=== PATIENT | female | born 1955 | race Caucasian/White ===

== ENCOUNTER → 2016-09-20 | Outpatient (CLI) | payer OTHER ==
[~2016-09-20] MED LIST: ALBU1AER9 INH; ASCO500T3 PO; ASPI325T39 PO; ASPI81TA28 PO; B-CO1CAP17 PO; B-COTAB18 PO; CALC-478 PO; LEVO25TA5 PO; METO25TA3 PO; OMEP20CA9 PO; QVRINH80 INH; VENL150C56 PO; VITA100C4 PO
== END | disposition home or self-care (01) ==
LOC: C.LABMFLN 09:01
PROVIDERS: ATTEND Family Medicine
DX: Z11.59 Encounter for screening for other viral diseases (principal); E03.9 Hypothyroidism, unspecified

== ENCOUNTER → 2016-10-15 | Outpatient (CLI) | payer OTHER ==
--- NOTE | 2016-10-15 12:55 | DIAGNOSTIC IMAGING REPORT ---
BILATERAL KNEE RADIOGRAPHS CLINICAL HISTORY: Bilateral knee pain. COMPARISON: Left knee radiographs January 02, 2016 and knee radiographs July 24, 2015 FINDINGS: Right knee: There is mild to moderate medial compartment joint space narrowing within the right knee with osteophytosis. There is suspected chondrocalcinosis. There is joint space narrowing with osteophytosis within the patellofemoral compartment of the right knee. No right knee joint effusion is present. There has been mild progression since exam of July 24, 2015. Left knee: Alignment of the left knee is anatomic. There is no acute fracture or joint effusion. There is moderate lateral compartment joint space narrowing of the left knee. There is joint space narrowing and osteophytosis within the patellofemoral compartment of the left knee. IMPRESSION: Right knee: 1. Moderate osteoarthritis of the right knee, most pronounced within the medial compartment. 2. No acute fracture or joint effusion of the right knee. Left knee: 1. Moderate osteoarthritis of the left knee, most pronounced within the lateral compartment. 2. No acute fracture or joint effusion of the left knee. Electronically signed by: Raghav Buchanan M.D. 10/15/2016 12:53 PM Dictated Date/Time: 10/15/2016 12:51 PM
== END | disposition home or self-care (01) ==
LOC: C.RDSM 11:00
PROVIDERS: ATTEND Physical Medicine & Rehabilitation Sports Medicine
DX: M25.561 Pain in right knee (principal); M25.562 Pain in left knee

== ENCOUNTER → 2016-11-08 | Day surgery (SDC) | payer OTHER ==
[2016-10-25 09:38] VITALS: Ht 157.5 cm; Wt 134.1 kg
[~2016-11-08] VITALS: Ht 157.5 cm; Wt 134.1 kg
[~2016-11-08] MED LIST changes: -ASCO500T3 PO; -ASPI325T39 PO; -B-CO1CAP17 PO; +LIDOCAINE HCL 2% 2 ML VIAL (20MG/ML) ONE; -METO25TA3 PO; -OMEP20CA9 PO; +PROPOFOL IV EMULSION 10 MG/ML 20 ML VIAL IV ONE; -VITA100C4 PO
--- NOTE | 2016-11-08 14:42 | Endo History and Physical ---
History & Physical Date of Service: Nov 08, 2016. Chief Complaint: dysphagia Referring Physician: Dr. yunior Goldberg History of Present Illness For EGD Past Medical History Anxiety, Reflux, Sleep Apnea, Hypertension, Depression Past Surgical History Hx Cardiac Surgery: Yes (HEART CATH-NO STENTS) Hx Internal Defibrillator: No Hx Pacemaker: No (LUKE RECORDER IMPLANTED) Hx Abdominal Surgery: Yes (UTERINE POLYP REMOVAL, D&C'S, TUBAL LIGATION) Hx of Implantable Prosthesis: No Hx Post-Op Nausea and Vomiting: No Hx Cancer Surgery: Yes (MULTIPLE BREAST BIOPSIES AND TUMOR REMOVAL (BENIGN)) Hx Thoracic Surgery: No Hx Orthopedic: Yes (RT KNEE ARTHROSCOPY) Hx Urinary Tract Surgery: No Family History Colon CA, Polyp, IBD Social History Smoking Status: Never Smoker Hx Substance Use: No Hx Alcohol Use: No Allergies Coded Allergies: Clopidogrel (Verified Allergy, Unknown, MUSCLE ACHES, 10/25/16) Iodinated Diagnostic Agents (Verified Allergy, Unknown, ANAPHALAXIS, ) Mometasone (Verified Allergy, Unknown, HIVES, 10/25/16) Naproxen (Verified Allergy, Unknown, HEART ATTACK SYMPTOMS, 10/25/16) Penicillins (Verified Allergy, Unknown, RASH, 10/25/16) Sertraline (Verified Allergy, Unknown, CHEST PAIN, 10/25/16) Current Medications Reported Home Medications Medications Dose Route/Sig Max Daily Dose Days Date Category Calcium & Magnesium + Zin 334-134-5 mg (Sfeboae-Fuoxahcxk-Imxs) 1 Tab Tab 1 Tab PO HS 10/25/16 Reported Vitamin B Complex (B-Complex Vitamins) 1 Tab Tab 1 Tab PO QAM 10/25/16 Reported Qvar (Beclomethasone Dip) 80 Mcg/Act Aer 1 Puff INH BID 10/25/16 Reported Effexor Extended Rel (Venlafaxine Hcl) 150 Mg Cap 150 Mg PO QAM 10/25/16 Reported Levothyroxine Sodium 25 Mcg Tab 1 Tab PO QAM 90 10/25/16 Reported Proair Hfa (Albuterol) Aers 2 Puffs INH Q4H PRN 09/06/14 Reported Vital Signs Weight (Kilograms): 134.09 Height (Feet): 5 Height (Inches): 2 Date Time Temp Pulse Resp B/P Pulse Ox O2 Delivery O2 Flow Rate FiO2 11/08/16 13:47 36.8 73 24 163/90 94 Room Air Physical Exam General Appearance: + obese Respiratory/Chest: Respiratory effort: no dyspnea Cardiovascular: Heart Auscultation: RRR Abdomen: Inspection & Palpation: soft Assessment and Plan Dysphagia for EGD
--- NOTE | 2016-11-08 14:43 | Discharge Instructions ---
Endoscopy Patient Instructions Date / Procedure(s) Performed Nov 08, 2016. EGD Allergy Information Coded Allergies: Clopidogrel (Verified Allergy, Unknown, MUSCLE ACHES, 10/25/16) Iodinated Diagnostic Agents (Verified Allergy, Unknown, ANAPHALAXIS, ) Mometasone (Verified Allergy, Unknown, HIVES, 10/25/16) Naproxen (Verified Allergy, Unknown, HEART ATTACK SYMPTOMS, 10/25/16) Penicillins (Verified Allergy, Unknown, RASH, 10/25/16) Sertraline (Verified Allergy, Unknown, CHEST PAIN, 10/25/16) Discharge Date / Findings Nov 08, 2016. Esophagitis with stricture-dilated Medication Instructions Restart Stopped Medication(s): resume meds Reported Home Medications Medications Dose Route/Sig Max Daily Dose Days Date Category Calcium & Magnesium + Zin 334-134-5 mg (Mkqised-Unxrwwwyb-Vtsy) 1 Tab Tab 1 Tab PO HS 10/25/16 Reported Vitamin B Complex (B-Complex Vitamins) 1 Tab Tab 1 Tab PO QAM 10/25/16 Reported Qvar (Beclomethasone Dip) 80 Mcg/Act Aer 1 Puff INH BID 10/25/16 Reported Effexor Extended Rel (Venlafaxine Hcl) 150 Mg Cap 150 Mg PO QAM 10/25/16 Reported Levothyroxine Sodium 25 Mcg Tab 1 Tab PO QAM 90 10/25/16 Reported Proair Hfa (Albuterol) Aers 2 Puffs INH Q4H PRN 09/06/14 Reported Provider Instructions Activity Restrictions - No exercising or heavy lifting for 24 hours. - Do not drink alcohol the day of the procedure. - Do not drive a car or operate machinery until the day after the procedure. - Do not make any important decisions or sign important papers in 24 hours after the procedure. Following Day: - Return to full activity which may include returning to work/school. Diet Start your diet with liquids and light foods (jello, soup, juice, toast). Then eat your usual diet if not nauseated. Treatment For Common After Affects For mild abdominal pain, bloating, or excessive gas: - Rest - Eat lightly - Lie on right side Follow-Up Information Follow-up with Dr. yunior Goldberg as scheduled Anesthesia Information What You Should Know You have had a procedure that required some medicine to reduce anxiety and discomfort. This treatment is called moderate sedation. After receiving the treatment, you may be sleepy, but you will be able to breathe on your own. The effects of the treatment may last for several hours. Follow these instructions along with Activity/Diet recommendations noted above: * Do NOT do anything where dizziness or clumsiness would be dangerous. * Rest quietly at home today, then you can be up and about tomorrow. * Have a responsible person stay with you the rest of today. * You may have had an I.V. today. If so, you may take the dressing off later today. Recommendations Call your doctor if: * Trouble breathing * Continuous vomiting for more than 24 hours * Temperature above 101 degrees * Severe abdominal pain or bloating * Pain not relieved by pain medicine ordered * There is increased drainage or redness from any incision * A large amount of rectal bleeding greater than 2-3 tablespoons. (If you had a polyp/s removed or have hemorrhoids, a small amount of blood - from the rectum is to be expected.) * You have any unanswered questions or concerns. IN THE EVENT OF A SERIOUS EMERGENCY, GO TO THE NEAREST EMERGENCY ROOM Your discharge instructions were prepared by provider Austin Delacruz. Patient Instructions Signature Page Guerline Noyola Patient (or Guardian) Signature/Date: I have read and understand the instructions given to me by my caregivers. Caregiver/RN/Doctor Signature/Date: The above-named patient and/or guardian has received patient instructions on this date. + Original Patient Signature Page (only) stays with chart. Please make copy for patient.
--- NOTE | 2016-11-08 14:47 | GI REPORT ---
Procedure Date: 11/08/2016 2:18 PM Procedure: Upper GI endoscopy Indications: Dysphagia Medicines: Propofol total dose 150 mg IV, Lidocaine 100 mg IV Complications: No immediate complications. Estimated Blood Loss: Estimated blood loss: none. Procedure: Pre-Anesthesia Assessment: - Prior to the procedure, a History and Physical was performed, and patient medications, allergies and sensitivities were reviewed. The patient's tolerance of previous anesthesia was reviewed. - The risks and benefits of the procedure and the sedation options and risks were discussed with the patient. All questions were answered and informed consent was obtained. After obtaining informed consent, the endoscope was passed under direct vision. Throughout the procedure, the patient's blood pressure, pulse, and oxygen saturations were monitored continuously. The Scope was introduced through the mouth, and advanced to the second part of duodenum. The upper GI endoscopy was accomplished without difficulty. The patient tolerated the procedure well. Findings: LA Grade A (one or more mucosal breaks less than 5 mm, not extending between tops of 2 mucosal folds) esophagitis with no bleeding was found. One mild benign-appearing, intrinsic stenosis was found. And was traversed. A guidewire was placed and the scope was withdrawn. Dilation was performed with a Savary dilator with no resistance at 54 Fr. The entire examined stomach was normal. The examined duodenum was normal. Impression: - LA Grade A reflux esophagitis. - Benign-appearing esophageal stenosis. Dilated. - Normal stomach. - Normal examined duodenum. - No specimens collected. Recommendation: - Discharge patient to home (ambulatory). - Continue present medications. - Return to primary care physician PRN. Austin Delacruz M.D. Austin Delacruz MD 11/08/2016 2:47:34 PM This report has been signed electronically. Note Initiated On: 11/08/2016 2:18 PM I attest to the content of the Intraoperative Record and orders documented therein, exceptions below
--- NOTE | 2016-11-08 15:12 | Anesthesiology Progress Note ---
Anesthesia Post Op Note Date & Time Nov 08, 2016 at 15:12 Vital Signs Pain Intensity: 0 Vital Signs Past 12 Hours Date Time Temp Pulse Resp B/P Pulse Ox O2 Delivery O2 Flow Rate FiO2 11/08/16 14:58 68 18 122/70 98 Room Air 11/08/16 14:43 73 18 126/68 98 Room Air 11/08/16 13:47 36.8 73 24 163/90 94 Room Air Notes Mental Status: alert / awake / arousable, participated in evaluation Pt Amnestic to Procedure: Yes Nausea / Vomiting: adequately controlled Pain: adequately controlled Airway Patency, RR, SpO2: stable & adequate BP & HR: stable & adequate Hydration State: stable & adequate Anesthetic Complications: no major complications apparent
[2016-11-08 15:13] VITALS: BP 122/67; PULSE 71; O2SAT 95
== END | disposition home or self-care (01) ==
LOC: C.GI 13:28
PROVIDERS: ATTEND Internal Medicine Gastroenterology
DX: K22.2 Esophageal obstruction (principal); K21.0 Gastro-esophageal reflux disease with esophagitis; F41.9 Anxiety disorder, unspecified; G47.30 Sleep apnea, unspecified; Z80.0 Family history of malignant neoplasm of digestive organs; I10 Essential (primary) hypertension; F32.9 Major depressive disorder, single episode, unspecified; Z98.51 Tubal ligation status; Z98.890 Other specified postprocedural states

== ENCOUNTER → 2017-03-06 | Day surgery (SDC) | payer OTHER ==
[~2017-03-06] VITALS: Ht 157.5 cm; Wt 140.0 kg
[~2017-03-06] MED LIST changes: +ACETAMINOPHEN 325 MG TAB PO PRN; +BACITRACIN OINT 0.9 GM PKT ONE; +FENTANYL CITRATE INJ 50 MCG/1 ML 2 ML VIAL ONE; +LIDOCAINE HCL 1% 20 ML VIAL ONE; -LIDOCAINE HCL 2% 2 ML VIAL (20MG/ML) ONE; +MIDAZOLAM HCL 1 MG/ML 2ML VIAL ONE; -PROPOFOL IV EMULSION 10 MG/ML 20 ML VIAL IV ONE
[2017-03-06 07:45] VITALS: BP 144/66; PULSE 72; TEMP 36.9; O2SAT 96; Ht 157.5 cm; Wt 140.0 kg
--- NOTE | 2017-03-06 08:22 | History & Physical Bridge Note ---
H&P Re-Evaluation Bridge Note: I have examined the patient, reviewed the History & Physical and in the interval since the performance of the History & Physical I have noted the following changes of clinical significance: No changes noted. I reviewed the indications, procedure, risks and alternatives with her and she understands and agree to proceed. Consent obtained.
--- NOTE | 2017-03-06 08:23 | Procedure Note ---
Pre-Mod Sedation Assessment General Date of Moderate Sedation: Mar 06, 2017. Vital Signs: Vital Signs Past 12 Hours Date Time Temp Pulse Resp B/P (MAP) Pulse Ox O2 Delivery O2 Flow Rate FiO2 03/06/17 07:45 36.9 72 20 144/66 (92) 96 Room Air Review Cardiovascular: regular rate, rhythm Abdomen: normal bowel sounds Lungs: lungs clear, normal breath sounds Pre-Sedation Airway Assessment Oral Cavity: Chipped Teeth, Dentures Smoking Status: Never Smoker Procedure Planning Contraindications-for Mod Sed: None Yes Notes The planned sedation has been discussed with the patient and consent obtained. I have identified the patient, determined the appropriateness of sedation and have assessed the patient immediately prior to the procedure. All medicine(s) and interventions are by my order.
[2017-03-06 09:22] VITALS: BP 156/77; PULSE 71; TEMP 36.6; O2SAT 94
--- NOTE | 2017-03-06 09:22 | Procedure Note ---
Post-Mod Sedation Assessment General Date of Moderate Sedation Mar 06, 2017. Vital Signs: Vital Signs Past 12 Hours Date Time Temp Pulse Resp B/P (MAP) Pulse Ox O2 Delivery O2 Flow Rate FiO2 03/06/17 09:05 74 16 142/76 (98) 99 Room Air 03/06/17 07:45 36.9 72 20 144/66 (92) 96 Room Air Review - Discharge Criteria Vital Signs Stable: Yes Alert/Oriented/Conversant: Yes Returned to Baseline Mental St: Yes Nausea Absent/Minimal: Yes Pain/Discomfort/Absent/Minimal: Yes Normal/Baseline Respirations: Yes Active Bleeding?: No
--- NOTE | 2017-03-06 09:22 | [facility] Operative Report ---
Operative Report Operative Date Mar 06, 2017. Pre-Operative Diagnosis Loop recorder in place Post-Operative Diagnosis same Procedure(s) Performed Loop recorder explantation Surgeon Dr. Ackerman Material Carrier Surgeon(s) none Estimated Blood Loss 2 cc Findings The loop recorder was located near the scar as expected and successfully removed. Specimens [facility] local with sedation Complication(s) None Disposition [facility] Description of Procedure After obtaining informed consent for the procedure, the patient was brought to the laboratory having had nothing by mouth after midnight. The location of the loop recorder was identified on x-ray. The patient was prepped and draped in the standard sterile manner for a loop recorder removal. The area was infiltrated with 1% lidocaine local anesthetic and a 1 cm incision was made through the old implant scar and carried down to the loop recorder. The loop recorder was dissected free of tissue and explanted. The incision was closed with a subcutaneous continuous closure of 4-0 Vicryl followed by running subcuticular skin closure of 4-0 Vicryl. Steri-Strips were applied and bacitracin ointment was placed on the incision. A dressing was applied. I attest to the content of the Intraoperative Record and any orders documented therein. Any exceptions are noted below.
[2017-03-06 09:52] VITALS: BP 149/77; PULSE 75; O2SAT 93
[2017-03-06 10:20] VITALS: BP 152/70; PULSE 71; O2SAT 95
[2017-03-06 10:49] VITALS: BP 136/65; PULSE 78; TEMP 36.4; O2SAT 96
--- NOTE | 2017-03-06 10:56 | Discharge Instructions ---
Discharge Instructions Date of Service Mar 06, 2017. Admission Reason for Admission: Removal Of Loop Discharge Discharge Diagnosis / Problem: Loop recorder in place Discharge Goals Goal(s): Therapeutic intervention Activity Recommendations Activity Limitations: resume your previous activity Weightbearing Status: Right partial . Instructions / Follow-Up Instructions / Follow-Up ACTIVITY RECOMMENDATIONS: * Do not raise affected arm over head for 2 weeks. SPECIAL CARE INSTRUCTIONS: * If bleeding occurs, apply direct pressure to area for 5 minutes. * Call your doctor if you have severe pain, fever, drainage or bleeding at site. * Keep dressing on and dry. * Keep any scheduled doctor's appointment. * Implant Card - hand held device with website information given. SKIN IRRITATION: * You may experience some redness and/or swelling in the area where radiation was administered. If any skin irritation occurs, please contact your family physician. FOLLOW UP VISIT: Dr. Ackerman 03/07/2017, 10:30 AM Current Hospital Diet Patient's current hospital diet: AHA Diet (Heart Healthy) Discharge Diet Recommended Diet: AHA Diet (Heart Healthy) Pending Studies Studies pending at discharge: no Medical Emergencies . Who to Call and When: Medical Emergencies: If at any time you feel your situation is an emergency, please call 911 immediately. . Non-Emergent Contact Non-Emergency issues call your: Primary Care Provider . . "Provider Documentation" section prepared by Brennon Ackerman. . VTE Core Measure Inpt VTE Proph given/why not?: Treatment not indicated
[2017-03-06 11:25] VITALS: BP 149/68; PULSE 82; TEMP 36.6; O2SAT 96
== END | disposition home or self-care (01) ==
LOC: C.ACU 07:03
PROVIDERS: ATTEND Internal Medicine Cardiovascular Disease
DX: Z95.818 Presence of other cardiac implants and grafts (principal); R55 Syncope and collapse; R00.2 Palpitations; F32.9 Major depressive disorder, single episode, unspecified; J45.909 Unspecified asthma, uncomplicated; K21.9 Gastro-esophageal reflux disease without esophagitis; N60.19 Diffuse cystic mastopathy of unspecified breast; E78.5 Hyperlipidemia, unspecified; I10 Essential (primary) hypertension; E03.9 Hypothyroidism, unspecified; E66.9 Obesity, unspecified; G47.33 Obstructive sleep apnea (adult) (pediatric); Z86.010 Personal history of colon polyps; Z82.49 Family history of ischemic heart disease and other diseases of the circulatory system; Z82.3 Family history of stroke

== ENCOUNTER → 2017-03-28 | Day surgery (SDC) | payer OTHER ==
[2017-03-14 10:36] VITALS: Ht 157.5 cm; Wt 140.0 kg
[~2017-03-28] VITALS: Ht 157.5 cm; Wt 140.0 kg
[~2017-03-28] MED LIST changes: -ACETAMINOPHEN 325 MG TAB PO PRN; -BACITRACIN OINT 0.9 GM PKT ONE; -LIDOCAINE HCL 1% 20 ML VIAL ONE; +LIDOCAINE HCL 2% 2 ML VIAL (20MG/ML) ONE; -MIDAZOLAM HCL 1 MG/ML 2ML VIAL ONE; +PROPOFOL IV EMULSION 10 MG/ML 20 ML VIAL IV ONE; -QVRINH80 INH
--- NOTE | 2017-03-28 13:59 | Endo History and Physical ---
History & Physical Date of Service: Mar 28, 2017. Chief Complaint: dysphagia Referring Physician: Dr. So Goldberg History of Present Illness For EGD Past Medical History Anxiety, Reflux, Sleep Apnea, Hypertension, Depression Past Surgical History Hx Cardiac Surgery: Yes (LOOP RECORDER PLACED AND REMOVED, HEART CATH NO STENTS 4-5 YEARS AGO) Hx Internal Defibrillator: No Hx Pacemaker: No Hx Abdominal Surgery: Yes (UTERINE POLYP REMOVAL, D&C'S, TUBAL LIGATION) Hx of Implantable Prosthesis: No Hx Post-Op Nausea and Vomiting: No Hx Cancer Surgery: No Hx Thoracic Surgery: No Hx Orthopedic: Yes (RT KNEE SCOPE) Hx Urinary Tract Surgery: No Family History Colon CA Social History Smoking Status: Never Smoker Hx Substance Use: No Hx Alcohol Use: No Allergies Coded Allergies: Doxycycline (Verified Allergy, Intermediate, RASH, 03/14/17) Iodinated Diagnostic Agents (Verified Allergy, Unknown, ANAPHALAXIS, ) Mometasone (Verified Allergy, Unknown, HIVES, 03/14/17) Naproxen (Verified Allergy, Unknown, HEART ATTACK SYMPTOMS, 03/14/17) Penicillins (Verified Allergy, Unknown, RASH, 03/14/17) Sertraline (Verified Allergy, Unknown, CHEST PAIN, 03/14/17) Clopidogrel (Verified Adverse Reaction, Unknown, MUSCLE ACHES, 03/14/17) Current Medications Reported Home Medications Medications Dose Route/Sig Max Daily Dose Days Date Category Aspirin Ec (Aspirin) 81 Mg Tab 81 Mg PO Q2D 03/06/17 Reported Calcium & Magnesium + Zin 334-134-5 mg (Irtpven-Luehytppp-Mlxz) 1 Tab Tab 1 Tab PO HS 10/25/16 Reported Vitamin B Complex (B-Complex Vitamins) 1 Tab Tab 1 Tab PO QAM 10/25/16 Reported Effexor Extended Rel (Venlafaxine Hcl) 150 Mg Cap 150 Mg PO QAM 10/25/16 Reported Levothyroxine Sodium 25 Mcg Tab 1 Tab PO BID 10/25/16 Reported Proair Hfa (Albuterol) Aers 2 Puffs INH Q4H PRN 09/06/14 Reported Vital Signs Weight (Kilograms): 140 Height (Feet): 5 Height (Inches): 2 Date Time Temp Pulse Resp B/P (MAP) Pulse Ox O2 Delivery O2 Flow Rate FiO2 03/28/17 13:34 37.2 76 20 165/76 (105) 95 Room Air Physical Exam General Appearance: + obese Respiratory/Chest: Respiratory effort: no dyspnea Cardiovascular: Heart Auscultation: RRR Abdomen: Inspection & Palpation: soft Assessment and Plan Dysphagia for EGD
--- NOTE | 2017-03-28 14:14 | Discharge Instructions ---
Endoscopy Patient Instructions Date / Procedure(s) Performed Mar 28, 2017. EGD Allergy Information Coded Allergies: Doxycycline (Verified Allergy, Intermediate, RASH, 03/14/17) Iodinated Diagnostic Agents (Verified Allergy, Unknown, ANAPHALAXIS, ) Mometasone (Verified Allergy, Unknown, HIVES, 03/14/17) Naproxen (Verified Allergy, Unknown, HEART ATTACK SYMPTOMS, 03/14/17) Penicillins (Verified Allergy, Unknown, RASH, 03/14/17) Sertraline (Verified Allergy, Unknown, CHEST PAIN, 03/14/17) Clopidogrel (Verified Adverse Reaction, Unknown, MUSCLE ACHES, 03/14/17) Discharge Date / Findings Mar 28, 2017. esophagitis Medication Instructions Stopped Medication(s): last dose ASA 03/23 Restart Stopped Medication(s): resume meds. Begin Prilosec 20 mg a day Reported Home Medications Medications Dose Route/Sig Max Daily Dose Days Date Category Aspirin Ec (Aspirin) 81 Mg Tab 81 Mg PO Q2D 03/06/17 Reported Calcium & Magnesium + Zin 334-134-5 mg (Lasbfhy-Zhnyhbcwi-Xtbe) 1 Tab Tab 1 Tab PO HS 10/25/16 Reported Vitamin B Complex (B-Complex Vitamins) 1 Tab Tab 1 Tab PO QAM 10/25/16 Reported Effexor Extended Rel (Venlafaxine Hcl) 150 Mg Cap 150 Mg PO QAM 10/25/16 Reported Levothyroxine Sodium 25 Mcg Tab 1 Tab PO BID 10/25/16 Reported Proair Hfa (Albuterol) Aers 2 Puffs INH Q4H PRN 09/06/14 Reported Provider Instructions Activity Restrictions - No exercising or heavy lifting for 24 hours. - Do not drink alcohol the day of the procedure. - Do not drive a car or operate machinery until the day after the procedure. - Do not make any important decisions or sign important papers in 24 hours after the procedure. Following Day: - Return to full activity which may include returning to work/school. Diet Start your diet with liquids and light foods (jello, soup, juice, toast). Then eat your usual diet if not nauseated. Treatment For Common After Affects For mild abdominal pain, bloating, or excessive gas: - Rest - Eat lightly - Lie on right side Follow-Up Information Follow-up with Dr. So Goldberg as scheduled Anesthesia Information What You Should Know You have had a procedure that required some medicine to reduce anxiety and discomfort. This treatment is called moderate sedation. After receiving the treatment, you may be sleepy, but you will be able to breathe on your own. The effects of the treatment may last for several hours. Follow these instructions along with Activity/Diet recommendations noted above: * Do NOT do anything where dizziness or clumsiness would be dangerous. * Rest quietly at home today, then you can be up and about tomorrow. * Have a responsible person stay with you the rest of today. * You may have had an I.V. today. If so, you may take the dressing off later today. Recommendations Call your doctor if: * Trouble breathing * Continuous vomiting for more than 24 hours * Temperature above 101 degrees * Severe abdominal pain or bloating * Pain not relieved by pain medicine ordered * There is increased drainage or redness from any incision * A large amount of rectal bleeding greater than 2-3 tablespoons. (If you had a polyp/s removed or have hemorrhoids, a small amount of blood - from the rectum is to be expected.) * You have any unanswered questions or concerns. IN THE EVENT OF A SERIOUS EMERGENCY, GO TO THE NEAREST EMERGENCY ROOM Your discharge instructions were prepared by provider Austin Delacruz. Patient Instructions Signature Page Guerline Noyola Patient (or Guardian) Signature/Date: I have read and understand the instructions given to me by my caregivers. Caregiver/RN/Doctor Signature/Date: The above-named patient and/or guardian has received patient instructions on this date. + Original Patient Signature Page (only) stays with chart. Please make copy for patient.
--- NOTE | 2017-03-28 14:20 | GI REPORT ---
Procedure Date: 03/28/2017 1:44 PM Procedure: Upper GI endoscopy Indications: Dysphagia Medicines: Fentanyl 100 micrograms IV, Propofol total dose 150 mg IV, Lidocaine 40 mg IV Complications: No immediate complications. Estimated Blood Loss: Estimated blood loss: none. Procedure: Pre-Anesthesia Assessment: - Prior to the procedure, a History and Physical was performed, and patient medications, allergies and sensitivities were reviewed. The patient's tolerance of previous anesthesia was reviewed. - The risks and benefits of the procedure and the sedation options and risks were discussed with the patient. All questions were answered and informed consent was obtained. After obtaining informed consent, the endoscope was passed under direct vision. Throughout the procedure, the patient's blood pressure, pulse, and oxygen saturations were monitored continuously. The Scope was introduced through the mouth, and advanced to the second part of duodenum. The upper GI endoscopy was accomplished with ease. The patient tolerated the procedure well. Findings: LA Grade B (one or more mucosal breaks greater than 5 mm, not extending between the tops of two mucosal folds) esophagitis with no bleeding was found. The entire examined stomach was normal. The examined duodenum was normal. Impression: - LA Grade B reflux esophagitis. - Normal stomach. - Normal examined duodenum. - No specimens collected. Recommendation: - Discharge patient to home (ambulatory). - Use Prilosec (omeprazole) 20 mg PO daily indefinitely. - Return to primary care physician PRN. Austin Delacruz M.D. Austin Delacruz MD 03/28/2017 2:19:08 PM This report has been signed electronically. Note Initiated On: 03/28/2017 1:44 PM I attest to the content of the Intraoperative Record and orders documented therein, exceptions below
--- NOTE | 2017-03-28 14:41 | Anesthesiology Progress Note ---
Anesthesia Post Op Note Date & Time Mar 28, 2017 at 14:40 Vital Signs Pain Intensity: 0 Vital Signs Past 12 Hours Date Time Temp Pulse Resp B/P (MAP) Pulse Ox O2 Delivery O2 Flow Rate FiO2 03/28/17 14:33 75 20 139/81 (100) 96 Room Air 03/28/17 14:18 77 18 110/96 (101) 96 Room Air 03/28/17 13:34 37.2 76 20 165/76 (105) 95 Room Air Notes Mental Status: alert / awake / arousable, participated in evaluation Pt Amnestic to Procedure: Yes Nausea / Vomiting: adequately controlled Pain: adequately controlled Airway Patency, RR, SpO2: stable & adequate BP & HR: stable & adequate Hydration State: stable & adequate Anesthetic Complications: no major complications apparent
[2017-03-28 14:48] VITALS: BP 137/73; PULSE 69; O2SAT 96
== END | disposition home or self-care (01) ==
LOC: C.GI 13:04
PROVIDERS: ATTEND Internal Medicine Gastroenterology
DX: R13.10 Dysphagia, unspecified (principal); F41.9 Anxiety disorder, unspecified; K21.9 Gastro-esophageal reflux disease without esophagitis; I10 Essential (primary) hypertension; F32.9 Major depressive disorder, single episode, unspecified; Z98.51 Tubal ligation status; Z80.0 Family history of malignant neoplasm of digestive organs; Z79.82 Long term (current) use of aspirin; J45.909 Unspecified asthma, uncomplicated; G47.33 Obstructive sleep apnea (adult) (pediatric); Z86.718 Personal history of other venous thrombosis and embolism; M19.90 Unspecified osteoarthritis, unspecified site; Z86.69 Personal history of other diseases of the nervous system and sense organs; E03.9 Hypothyroidism, unspecified; E66.01 Morbid (severe) obesity due to excess calories

== ENCOUNTER → 2017-11-04 | Outpatient (CLI) | payer OTHER ==
[~2017-11-04] MED LIST changes: -FENTANYL CITRATE INJ 50 MCG/1 ML 2 ML VIAL ONE; -LIDOCAINE HCL 2% 2 ML VIAL (20MG/ML) ONE; -PROPOFOL IV EMULSION 10 MG/ML 20 ML VIAL IV ONE
[2017-11-04 19:13] LABS: ALBUMIN 4.1 gm/dl (3.4-5.0); TOTAL PROTEIN 8.1 gm/dl (6.4-8.2)
== END | disposition home or self-care (01) ==
LOC: C.LABMFLN 15:12
PROVIDERS: ATTEND Family Medicine
DX: R79.89 Other specified abnormal findings of blood chemistry (principal)

== ENCOUNTER → 2017-12-01 | Outpatient (CLI) | payer OTHER ==
[~2017-12-01] MED LIST changes: +ACET1TAB84 PO; +ASCA500 PO; +ASPI-232 PO; +LISI-729 PO; +VITA1TAB4 PO; +VNTHFA/IN INH
--- NOTE | 2017-12-01 09:49 | DIAGNOSTIC IMAGING REPORT ---
L KNEE 4 OR MORE HISTORY: 62 years-old Female LEFT KNEE OSTEOARTHRITIS chronic left knee pain COMPARISON: Bilateral knee radiographs 10/15/2016 TECHNIQUE: AP view of the bilateral knees with sunrise, AP axial and lateral views of the left knee FINDINGS: Mild general varum deformity of the right knee with moderate medial compartment joint space narrowing on the AP view. Tricompartmental osteoarthritis is noted on the left with mild degenerative changes of the medial and lateral compartment and moderate degenerative changes of the patellofemoral joint. There is spurring of the tibial spines. No acute fracture, dislocation or osteochondral defect identified. Probable surface osteophyte measuring 8 mm is seen on the lateral view involving the proximal tibia without definite correlate on the additional views. Small left knee joint effusion. IMPRESSION: 1. Small knee joint effusion without acute fracture or subluxation. 2. Tricompartmental osteoarthritis, moderate within the patellofemoral joint. The above report was generated using voice recognition software. It may contain grammatical, syntax or spelling errors. Electronically signed by: Parish Benavides M.D. 12/01/2017 9:48 AM Dictated Date/Time: 12/01/2017 9:44 AM
== END | disposition home or self-care (01) ==
LOC: C.RDSM 18:54
PROVIDERS: ATTEND Physician Assistant
DX: M17.0 Bilateral primary osteoarthritis of knee (principal)

== ENCOUNTER → 2017-12-05 | Outpatient (CLI) | payer OTHER ==
[~2017-12-05] MED LIST changes: -ALBU1AER9 INH; -ASPI81TA28 PO
== END | disposition home or self-care (01) ==
LOC: C.LABMFLN 13:50
PROVIDERS: ATTEND Physical Medicine & Rehabilitation Sports Medicine
DX: M17.12 Unilateral primary osteoarthritis, left knee (principal); Z01.812 Encounter for preprocedural laboratory examination; Z01.810 Encounter for preprocedural cardiovascular examination; Z01.818 Encounter for other preprocedural examination

== ENCOUNTER 2017-12-17 05:03 | Inpatient (IN) | payer OTHER ==
[2017-12-01 10:24] VITALS: Ht 157.5 cm; Wt 142.3 kg
--- NOTE | 2017-12-01 11:08 | PAT Medication Instructions ---
Service Date Dec 01, 2017. Current Home Medication List Acetaminophen (Tylenol Arthritis Ext Rel), 650 MG PO UD PRN for Pain Albuterol Hfa (Ventolin Hfa), Unknown Dose INH UD PRN for allergy asthma Ascorbic Acid (Vitamin C), 1 TAB PO QDL Aspirin (Aspir-81), 2 TAB PO DAILY B-Complex Vitamins (Vitamin B Complex), 1 TAB PO QDL Hqeaare-Aupfbbxtn-Jtnz (Calcium & Magnesium + Zin 334-134-5 mg), 1 TAB PO UD PRN for leg cramps Levothyroxine Sodium (Levothyroxine Sodium), 1 TAB PO QAM Lisinopril (Zestril), 5 MG PO QAM Venlafaxine Hcl (Effexor Extended Rel), 150 MG PO QAM Vitamin E (Vitamin E), 1 TAB PO DAILY Medication Instructions For Your Scheduled Surgery -Contact your surgeon for instructions: Aspirin (Aspir-81), 2 TAB PO DAILY - Hold the following medications 2 weeks prior to surgery: Vitamin E (Vitamin E), 1 TAB PO DAILY - Hold the following medications the morning of surgery: Wuorjzu-Kalhflpqt-Rvul (Calcium & Magnesium + Zin 334-134-5 mg), 1 TAB PO UD PRN for leg cramps Lisinopril (Zestril), 5 MG PO QAM - Take the following medications the morning of surgery with a sip of water: Acetaminophen (Tylenol Arthritis Ext Rel), 650 MG PO UD PRN for Pain (if needed , can be taken up to four hours before surgery) Albuterol Hfa (Ventolin Hfa), Unknown Dose INH UD PRN for allergy asthma (if needed, and bring it with you to the hospital) Levothyroxine Sodium (Levothyroxine Sodium), 1 TAB PO QAM Venlafaxine Hcl (Effexor Extended Rel), 150 MG PO QAM - Take the following medications as scheduled the night before surgery: Acetaminophen (Tylenol Arthritis Ext Rel), 650 MG PO UD PRN for Pain (if needed) Albuterol Hfa (Ventolin Hfa), Unknown Dose INH UD PRN for allergy asthma (if needed) Ascorbic Acid (Vitamin C), 1 TAB PO QDL B-Complex Vitamins (Vitamin B Complex), 1 TAB PO QDL Rqwotwf-Spjluxvor-Ojft (Calcium & Magnesium + Zin 334-134-5 mg), 1 TAB PO UD PRN for leg cramps (if needed) If you have any questions please call us at [phone] or [phone] or [phone]
[2017-12-01 12:44] LABS: BASO % 0.6 %; BASO ABS # 0.04 K/uL (0-0.2); EOS % 2.2 %; EOS ABS # 0.15 K/uL (0-0.5); HEMATOCRIT 41.9 % (37-47); HEMOGLOBIN 14.4 g/dL (12.0-16.0); IG# 0.01 K/uL (0.00-0.02); LYMPH % 30.9 %; LYMPH ABS # 2.14 K/uL (1.2-3.4); MEAN CELL VOLUME 94.2 fL (80-100); MEAN CORPUSCULAR HEMOGLOBIN 32.4 pg (25-34); MEAN CORPUSCULAR HGB CONC 34.4 g/dl (32-36); MEAN PLATELET VOLUME 11.5 fL (7.4-10.4); MONO % 8.2 %; MONO ABS # 0.57 K/uL (0.11-0.59); NEUT ABS # 4.02 K/uL (1.4-6.5); PLATELET COUNT 227 K/uL (130-400); RED CELL DISTRIBUTION WIDTH CV 13.4 % (11.5-14.5); WHITE BLOOD COUNT 6.93 K/uL (4.8-10.8)
[2017-12-01 12:53] LABS: INR 0.9 (0.9-1.1); PTT PATIENT 24.9 SECONDS (21.0-31.0)
[2017-12-01 13:11] LABS: CALCIUM 9.4 mg/dl (8.5-10.1); CREATININE 0.9 mg/dl (0.60-1.20); POTASSIUM 4.2 mmol/L (3.5-5.1)
--- NOTE | 2017-12-12 14:42 | HISTORY & PHYSICAL EXAMINATION ---
DATE OF ADMISSION: 12/17/2017 DATE OF SURGERY: 12/17/2017. CHIEF COMPLAINT: Left knee pain. HISTORY OF PRESENT ILLNESS: This 62-year-old white female presents for left knee pain. She is scheduled to undergo a left total knee arthroplasty on 12/17/2017. She has a longstanding history of left knee pain. Pain is worse with weightbearing. It is affecting her ADLs. She has tried viscosupplementation for several years with reasonable improvement until earlier this year. She now feels they are not working. She desired to proceed with left total knee arthroplasty in hopes of alleviating her pain. Preoperative imaging has been obtained. PAST MEDICAL HISTORY: Significant for sleep apnea, hypertension, heart palpitations, angina, anxiety, migraine headaches, hypothyroidism, history of DVT in 1977, DJD, back pain, GERD, hiatal hernia, incontinence, and obesity. PREVIOUS SURGERIES: Breast biopsy, tubal ligation, endoscopy, breast reduction, tonsillectomy, colonoscopy, and additional breast surgery. FAMILY HISTORY: Significant for arthritis, heart disease and hypertension. CURRENT MEDICATIONS: Effexor 150 mg daily, Synthroid 25 mcg daily, ProAir inhaler q.i.d. p.r.n., Synvisc-One knee injections, vitamin D daily. ALLERGIES: KNOWN ALLERGY TO NAPROXEN, DOXYCYCLINE, PLAVIX, PENICILLIN/AMOXICILLIN, IVP DYE, AND STATINS. PENICILLIN AND AMOXICILLIN CAUSE A RASH. SOCIAL HISTORY: The patient is . No tobacco use, no ETOH use. REVIEW OF SYSTEMS: Significant for above-stated conditions, otherwise unremarkable. PHYSICAL EXAMINATION: GENERAL: Well-developed, well-nourished middle-aged white female, in no acute distress. Sitting in a chair. Alert and oriented. SKIN: Warm and dry with good turgor. No rashes or lesions. No ecchymosis or erythema. HEENT: Normocephalic, atraumatic. Eyes: PERRLA. EOMI. Ears: TMs intact bilaterally with good light reflexes. No erythema or bulging. Nares patent bilaterally without turbinate enlargement. Oropharynx without erythema or exudate. No lesions noted. Uvula midline. Oral mucosa moist. Upper denture plate is noted. Fillings are noted. HEART: Irregularly irregular. No gallops or rubs. LUNGS: Clear to auscultation bilaterally. No crackles, rhonchi or wheezing. Good air movement. ABDOMEN: Morbidly obese. Bowel sounds present x4, soft, nontender. No organomegaly. No masses. MUSCULOSKELETAL: Left knee has full terminal extension. Flexion to greater than 110 degrees. Strength is 5/5 with fair quad tone. There is crepitation palpable with active and passive range of motion. Stable collateral ligaments. She has focal discomfort with palpation over the medial and lateral joint lines. Valgus deformity. No intraarticular effusion. No defect in the patellar tendon or quadriceps tendon. Very limited mobility of the patella. Ambulatory with an antalgic gait. NEUROLOGIC: Gross sensation is intact across the lower extremities by soft touch. Cranial nerves II through XII are intact. IMAGING DATA: Radiographic imaging previously obtained shows significant advanced DJD in the lateral compartment of the left knee. Periarticular osteophytes, subchondral sclerosis, and joint space narrowing are all present. IMPRESSION: Left knee end-stage degenerative joint disease. PLAN: Approximately 20 minutes was spent with the patient reviewing operative procedure, postoperative recovery, physical therapy requirements and medication use. Postoperative prescriptions for Percocet and Coumadin will be provided at discharge from the hospital. Anticipate discharge to a group home or [facility]. She states she cannot go home immediately after surgery. Prescription was provided for a rolling walker. Preoperative lab work, EKG, and chest x-ray have been ordered. 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 ROMAN
[~2017-12-17] VITALS: Ht 157.5 cm; Wt 142.3 kg
[2017-12-17] VITALS (9 sets, daily range): BP systolic 115–162; BP diastolic 67–83; PULSE 88–110; TEMP 36.4–36.9; O2SAT 91–97
[2017-12-17] MEDS ORDERED: CEFAZOLIN 3000MG IV PUSH 22.5 ML IV SCH (06:00)
[2017-12-17] MEDS ORDERED: LACTATED RINGER'S 1000ML 1,000 ML IV SCH (06:00)
[2017-12-17] MEDS ORDERED: LACTATED RINGER'S 1000ML IV SCH (06:00)
[2017-12-17] MEDS ORDERED: ROPIVACAINE 5MG/ML 30 ML 150 MG, BUPIVACAINE 0.5% MPF INJ 30 ML, EpINEphrine HCL INJ 0.... INFIL SCH ×7 (06:00)
[2017-12-17] MEDS ORDERED: TRANEXAMIC ACID INJ 1,000 MG x 1 bag Topical TOP SCH ×2 (06:00)
--- NOTE | 2017-12-17 06:23 | History & Physical Bridge Note ---
H&P Re-Evaluation Bridge Note: I have examined the patient, reviewed the History & Physical and in the interval since the performance of the History & Physical I have noted the following changes of clinical significance: consent obtained.No changes noted
[2017-12-17] MEDS ORDERED: BUPIVACAINE 0.5 % 5 MG/1 ML PF 10ML VIAL ONE (06:27)
[2017-12-17] MEDS ORDERED: ROPIVACAINE 0.5% 5 MG/ML 30 ML VIAL ONE (06:27)
[2017-12-17] MEDS ORDERED: PROPOFOL IV EMULSION 10 MG/ML 20 ML VIAL IV ONE (06:31)
[2017-12-17] MEDS ORDERED: LIDOCAINE HCL 2% 2 ML VIAL (20MG/ML) ONE (06:31)
[2017-12-17] MEDS ORDERED: MIDAZOLAM HCL 1 MG/ML 2ML VIAL ONE ×5 (06:32→08:52)
[2017-12-17] MEDS ORDERED: FENTANYL CITRATE INJ 50 MCG/1 ML 2 ML VIAL ONE (06:32)
[2017-12-17] MEDS ORDERED: ORTHO JOINT ANESTHETIC ONE (06:32)
[2017-12-17] MEDS ORDERED: POVIDONE-IODINE OP SOLN 30 ML BTL ONE (06:32)
[2017-12-17] MEDS ORDERED: PHENYLEPHRINE 100MCG/ML 5ML SYR ONE (07:06)
[2017-12-17] MEDS ORDERED: EpHEDrine SULFATE 50MG/5ML SYR ONE (07:23)
--- NOTE | 2017-12-17 08:28 | [facility] Post Operative Brief Note ---
Immediate Operative Summary Operative Date Dec 17, 2017. Pre-Operative Diagnosis Left Knee End-Stage Degenerative Joint Disease Post-Operative Diagnosis Left Knee End-Stage Degenerative Joint Disease Procedure(s) Performed Left Total Knee Arthroplasty Surgeon Dr. David Hand Weaver Surgeon(s) Dr. Lopez (Fellow)/KENNETH Stinson Estimated Blood Loss 75cc Findings Consistent with Post-Op Diagnosis Fluids (cc crystalloids) 1600cc Specimens A. Left Knee Bone and Tissue Drains None Anesthesia Type MAC Spinal Regional Complication(s) none Disposition Accompanied Pt To Recover: no Disposition: Recovery Room / PACU
--- NOTE | 2017-12-17 08:41 | [facility] Operative Report ---
Operative Report Operative Date Dec 17, 2017. Pre-Operative Diagnosis Left Knee End-Stage Degenerative Joint Disease Post-Operative Diagnosis Left Knee End-Stage Degenerative Joint Disease Procedure(s) Performed Left Total Knee Arthroplasty Surgeon Dr. David Safety Pin Assembling Machine Operator Surgeon(s) Dr. Lopez (Fellow)/KENNETH Rea Estimated Blood Loss 75cc Findings Left knee DJD Fluids 1600cc Specimens A. Left Knee Bone and Tissue Drains None Anesthesia Type MAC Spinal Regional Complication(s) none Disposition no Recovery Room / PACU Indications This 62-year-old white female presented to the office with complaints of intractable left knee pain. She had tried conservative care measures including oral pain medication, activity modification, and use of an assistive device. She elected to proceed with surgical intervention after being educated about potential risks and outcomes. Preoperative imaging was obtained. Description of Procedure Patient was administered a spinal anesthetic and then taken to the operating room where she was given sedation. She was prepped and draped in usual sterile fashion. Please see Dr. David's operative report for specifics of the procedure. I was present for the entire case from initial patient positioning through final wound closure. Assistance was provided in tissue retraction, hemostasis, trial implant placement, final implant placement, and final wound closure. Patient was taken to the recovery room in satisfactory condition. I attest to the content of the Intraoperative Record and any orders documented therein. Any exceptions are noted below.
[2017-12-17] MEDS ORDERED: METOCLOPRAMIDE HCL INJ 5 MG/ML 2 ML VIAL IV PRN (08:45)
[2017-12-17] MEDS ORDERED: MAGNESIUM HYDROXIDE SUSP 30 ML UDC PO PRN (08:45)
[2017-12-17] MEDS ORDERED: ALBUTEROL HFA 8 GM INHALER INH PRN (08:45)
[2017-12-17] MEDS ORDERED: MoRPHine SULFATE 2 MG/ML CARP IV PRN (08:45)
[2017-12-17] MEDS ORDERED: ALUMINUM/MAGNESIUM/SIMETH (MAALOX MAX) 30 ML UDC PO PRN (08:45)
[2017-12-17] MEDS ORDERED: BISACODYL 10 MG SUPP PR PRN (08:45)
[2017-12-17] MEDS ORDERED: ONDANSETRON INJ 2 MG/ML 2 ML VIAL IV PRN (08:45)
[2017-12-17] MEDS ORDERED: NURSING VERBAL MED ORDER ONE (08:54)
[2017-12-17] MEDS: DOCUSATE SODIUM 100 MG CAP PO SCH ×3 (09:00→21:32)
[2017-12-17] MEDS ORDERED: ACETAMINOPHEN IV 100 ML IV PRN (09:00)
[2017-12-17] MEDS: MULTIVITAMIN TAB PO SCH ×2 (09:00→10:31)
[2017-12-17] MEDS: PANTOprazole SOD 40 MG TAB PO SCH ×2 (09:00→10:31)
--- NOTE | 2017-12-17 09:06 | DIAGNOSTIC IMAGING REPORT ---
LEFT KNEE 2 VIEWS History: Left total knee arthroplasty. Degenerative arthritis. Postop. FINDINGS: The patient is status post a left total knee arthroplasty. The hardware is intact. No fracture or dislocation. Skin nubia are in place. IMPRESSION: Left total knee arthroplasty. No evidence for hardware complication. Electronically signed by: Killian Cuellar M.D. 12/17/2017 9:05 AM Dictated Date/Time: 12/17/2017 9:03 AM
--- NOTE | 2017-12-17 09:24 | Anesthesiology Progress Note ---
Anesthesia Post Op Note Date & Time Dec 17, 2017 at 09:23 Vital Signs Pain Intensity: 0 Vital Signs Past 12 Hours Date Time Temp Pulse Resp B/P (MAP) Pulse Ox O2 Delivery O2 Flow Rate FiO2 12/17/17 09:00 36.3 90 26 112/58 98 Nasal Cannula 2 12/17/17 08:50 88 25 119/60 98 Nasal Cannula 2 12/17/17 08:40 103 23 112/67 99 Oxymask 10 12/17/17 08:34 36.8 87 20 115/67 100 Oxymask 10 12/17/17 05:59 36.9 110 20 147/79 95 Room Air Notes Mental Status: alert / awake / arousable, participated in evaluation Pt Amnestic to Procedure: Yes Nausea / Vomiting: adequately controlled Pain: adequately controlled Airway Patency, RR, SpO2: stable & adequate BP & HR: stable & adequate Hydration State: stable & adequate Neuraxial Anesthesia: was administered, sensory block is resolving Anesthetic Complications: no major complications apparent
[2017-12-17] MEDS ORDERED: ATROPINE SULFATE 0.1 MG/ML 5ML SYR IV PRN (09:30)
[2017-12-17] MEDS ORDERED: EpHEDrine SULFATE INJ 50 MG/ML AMP IV PRN (09:30)
--- NOTE | 2017-12-17 09:30 | OPERATIVE REPORT ---
DATE OF OPERATION: 12/17/2017 DATA GOVERNANCE ANALYST: Jessica. SECONDARY DATA GOVERNANCE ANALYST: Ayden Fernandez PA-C PREOPERATIVE DIAGNOSIS: Osteoarthritis with valgus alignment, left knee. POSTOPERATIVE DIAGNOSIS: Osteoarthritis with valgus alignment, left knee. OPERATION PERFORMED: Cemented left total knee replacement. PERIOPERATIVE SITUATION: Medically cleared female who has been followed for over a decade with intractable knee pain. Physical exam and x-ray reveal substantial valgus alignment with the lateral compartment disease and significant patellofemoral disease. She is requesting knee replacement. She is requesting it on both sides, emergently wanted to do it simultaneously I told her based on her comorbidities that was not appropriate. We decided to do the left side first. SUMMARY OF IMPLANTS: Size 3 posterior cruciate substituting femur, size 2.5 tibial tray, mobile bearing, tibial insert size 3 matching the femur, 10 mm thick posterior cruciate substituting oval dome 3 peg patella size 38, 2 bags of Palacos G cement. ESTIMATED BLOOD LOSS: 75 mL. CRYSTALLOID: 1600 mL. DVT prophylaxis per protocol. DESCRIPTION OF OPERATION: The patient was appropriately identified, site verified, consent verified. 3 g of Ancef confirmed as being given. The left lower extremity was prepped and draped in the usual routine fashion. Tourniquet was inflated to 300 mmHg after exsanguination of the limb with a rubber Esmarch bandage for a total of about 50 minutes. Midline exposure was utilized. Parapatellar arthrotomy performed. Synovial tissue resected. Osteophytes resected. Distal femur entered. Distal femur resected 12 mm. Proximal tibia resected 4 mm. Cruciates were excised. Menisci excised. Extension gap was excellent. Femur was sized to a 3. Appropriate cutting block applied. The anterior, posterior, condylar, and chamfer cuts made. Tibia was sized to 2-1/2. Appropriate broaching and reaming carried out. Trial reduction carried out. Good stability in full extension, mid range flexion, and full flexion. Patella tracked well. The patella was sized to a 38. Appropriate resection made leaving about 15 mm. The trial tracked well. The wound was then irrigated with Betadine, Pulsavac, TXA, and then the permanent cemented into position. After 12 minutes, the tourniquet deflated. Minor bleeding points controlled with electrocautery. After 14 minutes, the knee flexed and checked. Everything was good. Patella tracked well. The wound was irrigated. The trial spacer removed. No extra cement needed to be removed. The permanent spacer was then seated, irrigated with Betadine, and then the wound closed with #2 Vicryl, #1 Vicryl, 2-0 Vicryl, and stainless steel clips. Appropriate dressing applied including a Shalom Gann cotton dressing based on BMI. The patient will be high risk based on that. Follow up with a Prevena dressing in the morning. Summary of implants as noted above. Pathology pending on bone. I attest to the content of the Intraoperative Record and any orders documented therein. Any exception s are noted below.
[2017-12-17] MEDS ORDERED: D5W AND 1/2NSS + 20MEQ KCL 1,000 ML IV SCH (10:00)
[2017-12-17] MEDS: LISINOPRIL 5 MG TAB PO SCH (10:29)
[2017-12-17] MEDS: OXYCODONE HCL IR 5 MG TAB (IMMEDIATE RELEASE) PO PRN ×4 (10:34→21:29)
--- NOTE | 2017-12-17 11:23 | PROGRESS NOTE ---
DATE: 12/17/2017 Postop check status post left total knee replacement. The patient is sitting up in bed. Ate lunch okay. She denies chest pain, shortness of breath, fever, chills, nausea, vomiting or headache. Vital signs are stable. She is afebrile. Neurovascular check femoral sciatic nerve is normal. Wound dressing clean, dry and intact. Postop x-rays look excellent. ASSESSMENT: Doing well. Continue care pathway. We will Hep-Lock IV. Mobilize. Will need social service assessment LEONEL. She is insecure about returning home.
[2017-12-17] MEDS: FERROUS GLUCONATE 324 MG TAB PO SCH ×2 (13:16→17:52)
[2017-12-17] MEDS: ACETAMINOPHEN 500 MG TAB PO SCH ×2 (13:48→21:29)
[2017-12-17] MEDS: MoRPHine SULFATE 4 MG/ML 1 ML CARP\\VIAL IV PRN ×3 (14:08→23:49)
[2017-12-17] MEDS: CEFAZOLIN IV 2,000 MG in SYRINGE 0 ML IV SCH ×2 (14:30→22:31)
[2017-12-17] MEDS ORDERED: WARFARIN SOD 5 MG TAB PO SCH (16:00)
[2017-12-17] MEDS ORDERED: SENNA 8.6 MG TAB PO SCH (21:00)
[2017-12-18] MEDS: OXYCODONE HCL IR 5 MG TAB (IMMEDIATE RELEASE) PO PRN ×4 (01:35→16:26)
[2017-12-18 04:05] VITALS: BP 110/64; PULSE 75; TEMP 36.6; O2SAT 91
[2017-12-18] MEDS ORDERED: LEVOTHYROXINE 25 MCG TAB PO SCH (06:00)
[2017-12-18] MEDS: ACETAMINOPHEN 500 MG TAB PO SCH ×2 (06:21→13:52)
[2017-12-18 06:49] LABS: HEMATOCRIT 37.5 % (37-47); HEMOGLOBIN 12.8 g/dL (12.0-16.0); MEAN CELL VOLUME 94.7 fL (80-100); MEAN CORPUSCULAR HEMOGLOBIN 32.3 pg (25-34); MEAN CORPUSCULAR HGB CONC 34.1 g/dl (32-36); MEAN PLATELET VOLUME 11.3 fL (7.4-10.4); PLATELET COUNT 215 K/uL (130-400); RED CELL DISTRIBUTION WIDTH CV 13.3 % (11.5-14.5); RED CELL DISTRIBUTION WIDTH SD 46.6 fL (36.4-46.3); WHITE BLOOD COUNT 10.99 K/uL (4.8-10.8)
[2017-12-18 07:30] LABS: CALCIUM 8.5 mg/dl (8.5-10.1); CREATININE 0.88 mg/dl (0.60-1.20); POTASSIUM 4.2 mmol/L (3.5-5.1)
[2017-12-18] MEDS ORDERED: DEXAMETHASONE INJ 10 MG in SYRINGE 0 ML IV ONE (07:30)
[2017-12-18 08:15] VITALS: BP 111/61; PULSE 75; TEMP 36.6; O2SAT 95
[2017-12-18] MEDS ORDERED: CLC100 PO (08:21)
[2017-12-18] MEDS ORDERED: OXYC-57 PO (08:21)
[2017-12-18] MEDS ORDERED: WARF2TAB PO (08:21)
[2017-12-18] MEDS: FERROUS GLUCONATE 324 MG TAB PO SCH ×2 (08:23→12:33)
[2017-12-18] MEDS: DOCUSATE SODIUM 100 MG CAP PO SCH (08:23)
[2017-12-18] MEDS: PANTOprazole SOD 40 MG TAB PO SCH (08:24)
[2017-12-18] MEDS: LISINOPRIL 5 MG TAB PO SCH (08:24)
[2017-12-18] MEDS: MULTIVITAMIN TAB PO SCH (08:24)
[2017-12-18] MEDS ORDERED: VENLAFAXINE HCL XR 150 MG CAPXR PO SCH (09:00)
--- NOTE | 2017-12-18 09:19 | Orthopedic Progress Note ---
Orthopedic Progress Note Date of Service Dec 18, 2017. Subjective Post OP Day: 1 Reports: complaints (of left knee pain), Denies: chest pain, SOB, nausea / vomiting, light headedness, calf pain Additional Notes: states the block wore off and her pain increased significantly. Objective calves soft nontender, N/V intact, splint C/D/I, capillary refill less than 2 sec., dressing C/D/I, incision C/D/I, A&O x3, toes mobile, CMS intact wound looks good, minimal edema. Date Time Temp Pulse Resp B/P (MAP) Pulse Ox O2 Delivery O2 Flow Rate FiO2 12/18/17 08:15 36.6 75 14 111/61 (78) 95 Room Air 12/18/17 04:05 36.6 75 16 110/64 (79) 91 CPAP 12/17/17 23:26 Room Air CPAP 12/17/17 23:00 36.6 98 16 123/69 (87) 91 CPAP 12/17/17 19:08 36.8 104 18 151/72 (98) 92 Room Air 12/17/17 15:45 Room Air 12/17/17 15:34 36.6 88 16 145/81 (102) 93 Room Air 12/17/17 12:30 36.4 106 18 162/83 (109) 95 Nasal Cannula 2.0 12/17/17 11:24 91 18 125/78 (94) 97 Nasal Cannula 2.0 12/17/17 10:22 102 18 120/79 (93) 97 Nasal Cannula 2.0 12/17/17 09:55 36.5 91 18 121/69 (86) 96 Nasal Cannula 2.0 12/17/17 09:25 Nasal Cannula 2.0 12/17/17 09:25 97 Nasal Cannula 2.0 12/17/17 09:25 36.6 88 20 115/67 (83) 97 Nasal Cannula 2.0 Laboratory Results 24 Hours: Test 12/18/17 06:20 Hematocrit 37.5 % Hemoglobin 12.8 g/dL Prothromb Time International Ratio 1.0 Prothrombin Time 10.6 SECONDS Assessment & Plan Assessment: left knee s/p total knee arthroplasty Plan: PT/OT this morning dressings changed, Prevena wound vac applied. continue ice/elevation anticipate transfer to [facility] [place] this afternoon coumadin per nomogram WBAT for ambulation Discharge Planning Discharge Planning: rehab hospital Pain Management: Percocet DVT Prophylaxis: TEDs, SCDs, Coumadin Therapy: Physical Therapy, Occupational Therapy
--- NOTE | 2017-12-18 09:24 | Discharge Instructions ---
Discharge Instructions Date of Service Dec 18, 2017. Admission Reason for Admission: Left Knee Degenerative Joint Disease Discharge Discharge Diagnosis / Problem: left Knee degenerative joint disease Discharge Goals Goal(s): Decrease discomfort, Improve function, Increase independence Activity Recommendations Activity Level: Assistance Required (with walker) Therapies: Physical Therapy, Weight Bearing Status (WBAT LLE), Occupational Therapy Weightbearing Status: Left weightbearing (as tolerated) Shower/Bathe: may shower/bathe in 3 days, keep incision dry . Additional Information Patient informed of condition: Yes Advance Directives: No DNR: No Level of Care: Acute Rehab ([facility]) Communicable Disease: No Prognosis: Improving Jo Catheter: No Instructions / Follow-Up Instructions / Follow-Up New Medicine: * You will likely be taking one or more of these medications: 1. Percocet - Take, as directed, when you need it, every four to six hours to control your pain. 2. Iron Sulfate - Take three times each day for the month after surgery to help you replace the blood lost during surgery. 3. Coumadin - Thins your blood to lessen the chance of forming a blood clot. The dose of this is different for each person and is based on your blood tests that are done twice a week. * The most common side effects of pain medicine and iron are nausea and constipation. If nausea or constipation is too much of a problem or if you have any questions about your new medicines or doses, call [facility] at . We will try to help you manage these issues. VERY IMPORTANT TO READ AND REVIEW" Blood Clots and Blood Thinning Medicine: * You are given Coumadin during the immediate post-operative period to lessen the risk of blood clots forming in your legs and/or lungs. Coumadin is usually given for six weeks after surgery. * The prescription is for 2 mg tablets. At discharge, you should understand your dose and take it all at the same time every day, preferably after dinner. * You need to get your blood checked 1 - 2 times per week for six weeks or as directed. * If your dose needs to change, we will call you. Do not take your medication on the day of the blood test until we call you. Pain: * The immediate post-operative period after knee replacement surgery is often quite painful. * You are given a prescription for pain medicine. You should take it, as directed, when you need it, especially before physical therapy and before going to bed. Pain that interferes with sleep is very common and can last several months. * You will likely need pain medicine for the first four to six weeks. It will not stop all of the pain. The pain will lessen and as you feel better, you may change to milder pain medicine such as Tylenol. * The most common side effects of pain medicine are nausea and constipation, so don't take more than you need. Physical Therapy: * You will have physical therapy two or three times each week for four to six weeks after your surgery in order to regain your knee range of motion and to retrain your knee to work properly. * It is just as important to make sure you are getting your knee perfectly straight as it is to regain your knee bend. * Taking a pain pill an hour before therapy can help you have a more productive and comfortable therapy session if needed. Home Exercise: * You were shown a series of exercises (heel props, heel slides, etc.) in the hospital. Do these exercises three to four times each day including the exercises you were shown in physical therapy. Walking: * Get up and walk several times each day. For the first four weeks, try not to stand or walk for more than one hour at a time. If you do stand or walk for more than one hour, you will not hurt anything, but your knee and leg will likely swell. * As you feel comfortable, you may change from the walker or crutches to a cane and then to independent walking. SELF CARE INSTRUCTIONS AFTER TOTAL KNEE REPLACEMENT A. You may need to continue a physical therapy program after discharge from the hospital. There are several options available to you. Your doctor will assist you in selecting the best one for you. 1. An out-patient facility 2 to 3 times a week for therapy or home therapy. 2. Continue working on all exercises taught to you in the hospital. Your goals should be to increase bending of your knee to 90 degrees and beyond and to fully straighten your knee. B. You may progress at your own pace from walking with a walker or crutches to a cane; then to no assistive devices. C. Make walking a part of your daily routine. Be up as much as comfortable with rest periods throughout the day. Rest with leg elevation is very important. Use the ice wrap frequently for the first 3-4 weeks. D. There are no restrictions on activities. You may ride in a car, shop, participate in weed cutter and all social activities. E. Wear the long elastic stockings (SIGIFREDO hose) 20 hours a day for six weeks after surgery. They can be removed several times a day for laundering and for a shower. F. Do not place a pillow behind your knee when resting. A pillow at your ankle is okay. VERY IMPORTANT TO READ AND REVIEW A. Take Coumadin, Aspirin or Lovenox (blood thinning medications) as directed by your doctor. If on Coumadin, have a pro-time (blood test) drawn according to your doctor's instructions. This will tell the doctor how well the Coumadin is thinning your blood. 1. YOU WILL BE GIVEN AN ORDER AT DISCHARGE FOR PT/INR (BLOOD WORK). PLEASE HAVE THIS DONE INSTRUCTED. PLEASE CALL OUR OFFICE AFTER YOUR BLOODWORK IS COMPLETE SO WE CAN TRACK YOUR RESULTS. IF YOU ARE GOING TO OUTPATIENT PHYSICAL THERAPY, YOU WILL NEED TO GO TO OUTPATIENT TESTING TO HAVE IT DRAWN. B. There are a few signs you need to watch for after you are home. Call [facility] if you notice any of the followin. Increased severe knee pain. Some pain is expected especially when you exercise. 2. Increased swelling in your leg or knee; pain or swelling of the calf muscle in either lower leg. 3. Any fluid drainage from the incision. 4. Shortness of breath or chest pain. C. Please call [facility] at if you have any concerns or questions about your operation or recovery. The doctor or his nurse will return your call promptly. D. You must take antibiotics before dental work, bladder, bowel or other surgery. Call the office to obtain a prescription at least 2 days prior to your appointment. * CALL IF INCREASED PAIN, REDNESS, DRAINAGE OR FEVER GREATER THAT 101. * Sutures should be removed 12-14 days after surgery unless you are on chronic steriods, then it will be 14-18 days after surgery. Call your doctor if: * Temperature above 101 degrees F. * Pain not relieved by pain medicine ordered. * Increased drainage or redness from incision. * Notify your doctor with any questions or concerns. Current Hospital Diet Patient's current hospital diet: Regular Diet Discharge Diet Recommended Diet: Regular Diet Procedures Procedures Performed: Left Total Knee Arthroplasty Pending Studies Studies pending at discharge: no Physician Orders On Transfer Special Precautions: ROM left knee 0-90 deg x 2 weeks, then may advance as tolerated. Dressing Changes: Leave wound vac left knee in place. Okay to readjust Webril/Sigifredo stocking as needed. Sigifredo stocking bilateral lower extremities 20 hours/day. Vital Signs: As per routine Medical Emergencies . Who to Call and When: Medical Emergencies: If at any time you feel your situation is an emergency, please call 911 immediately. . Non-Emergent Contact Non-Emergency issues call your: Surgeon Call Non-Emergent contact if: temperature is above 101, your pain is not controlled, wound has increased drainage, wound has increased redness, wound has increased pain . . "Provider Documentation" section prepared by Hien Pal. . Core Measure Problem Core Measures: None
[2017-12-18 09:46] VITALS: BP 147/73; PULSE 70; O2SAT 96
[2017-12-18] MEDS: MoRPHine SULFATE 4 MG/ML 1 ML CARP\\VIAL IV PRN (09:46)
[2017-12-18 10:12] VITALS: BP 147/73; PULSE 80; O2SAT 96
[2017-12-18 11:55] VITALS: BP 145/78; PULSE 88; TEMP 36.7; O2SAT 93
[2017-12-18] MEDS ORDERED: MAGNESIUM OXIDE 400 MG TAB PO SCH (14:00)
[2017-12-18 15:03] VITALS: BP 145/78; PULSE 88; TEMP 36.7; O2SAT 93
[2017-12-18] MEDS ORDERED: WARFARIN SOD 5 MG TAB PO SCH (16:00)
--- NOTE | 2017-12-19 03:51 | DISCHARGE SUMMARY ---
ATTENDING PHYSICIAN: King David MD PRIMARY CARE PHYSICIAN: So Goldberg MD CONSULTING PHYSICIANS: None. CONDITION ON DISCHARGE: Stable. DISCHARGE DIAGNOSIS: Left knee status post total knee arthroplasty. PROCEDURE: Left knee total knee arthroplasty, 12/17/2017. HISTORY OF PRESENT ILLNESS: This 62-year-old white female presented to the office with complaints of left knee pain. She had a longstanding history of left knee pain that was worse with weightbearing. It was affecting her ADLs. She had tried multiple treatments without success. She elected to proceed with total joint arthroplasty in hopes of alleviating her pain. Preoperative imaging was obtained. HOSPITAL COURSE: Patient was admitted through same day surgery on 12/17/2017. She underwent successful left total knee arthroplasty and was taken to the recovery room in satisfactory condition. She did reasonably well throughout the remainder of the day. Pain was controlled with oral and IV pain medications. She had no episodes of nausea, vomiting, chest pain, shortness of breath, or severe abdominal pain. Vitals remained stable. She was reassessed on the morning of 12/18/2017. She complained of pain in the early hours, but this improved considerably with a dose of Decadron. Her postop dressings were removed and a Prevena wound VAC was placed along with a compressive dressing and her ZAIRA hose. Pain improved significantly after removing of her postoperative dressings. She was able to participate in occupational therapy and physical therapy. She was able to ambulate 22 feet with use of her walker. Patient was found to be a reasonable candidate for rehab hospital placement. She was accepted at [facility] and was transferred there. LABORATORY DATA: Postoperative labs showed hemoglobin of 12.8 and hematocrit of 37.5. INR is 1.0 with PT 10.6. Postoperative chemistry panel shows normal values with sodium 133, potassium 4.2, chloride 102, BUN 12, creatinine 0.88. ALLERGIES: KNOWN ALLERGY TO DOXYCYCLINE, IV CONTRAST DYE, MOMETASONE, NSAIDS, PENICILLIN, ZOLOFT, STATINS, AND CLOPIDOGREL. DISCHARGE MEDICATIONS: Prescriptions were provided for Coumadin 2 mg tablets to be taken 4 mg daily. Adjust accordingly to keep INR between 1.8 and 2.2. Percocet 5/325 mg 1-2 tablets every 4 hours as needed for pain, docusate sodium 100 mg p.o. b.i.d. Continue her Tylenol Arthritis as needed when not using Percocet. Also continue albuterol inhaler p.r.n., vitamin C 500 mg p.o. daily, aspirin 81 mg 2 tablets p.o. daily, vitamin B complex p.o. daily, calcium and magnesium plus zinc p.o. daily p.r.n. cramping, Synthroid 25 mcg p.o. q.a.m., Zestril 5 mg p.o. q.a.m., venlafaxine 150 mg p.o. q.a.m., vitamin E 400 mg p.o. daily. FOLLOWUP APPOINTMENT: Patient has a followup appointment in the office on 12/24/2017 at 1:00 p.m. for her Prevena wound VAC change. She also has an appointment on January 01 for staple removal. DISCHARGE INSTRUCTIONS: Patient has a Prevena wound VAC in place. It should not be removed. Keep the leg dry. Do not get the dressings wet. Maximum flexion of the left knee is 90 degrees for the first 2 weeks. Continue to ambulate with weightbearing as tolerated. Keep her INR between 1.8 and 2.2. Written instructions were provided. ROMAN
== END 2017-12-18 17:20 | DRG 470 ==
LOC: C.ACU 05:03 → C.3E 08:40 → ENRESERV 09:05
PROVIDERS: ADMIT Physical Medicine & Rehabilitation Sports Medicine; ATTEND Physical Medicine & Rehabilitation Sports Medicine
PROC: 0SRD0J9 Replacement of Left Knee Joint with Synthetic Substitute, Cemented, Open Approach (ICD-10-PCS; principal; 2017-12-17 07:00)
DX: M17.12 Unilateral primary osteoarthritis, left knee (principal); G47.30 Sleep apnea, unspecified; I10 Essential (primary) hypertension; F41.9 Anxiety disorder, unspecified; Z82.49 Family history of ischemic heart disease and other diseases of the circulatory system; Z88.5 Allergy status to narcotic agent; Z88.1 Allergy status to other antibiotic agents; Z88.0 Allergy status to penicillin; E03.9 Hypothyroidism, unspecified; Z86.718 Personal history of other venous thrombosis and embolism

== ENCOUNTER 2024-03-17 08:08 | Observation (INO) ==
--- NOTE | 2024-03-17 08:36 | Emergency Department Note ---
Impression & Plan Deep vein thrombosis of left femoral vein, D-dimer, elevated, Shortness of breath ED Provider Note NAME: CAMMIE SANTOS AGE: 68 SEX: F : 1955 ARRIVES VIA: Walk-In INFORMANT: Patient ED PROVIDER(S): Christiano Nichols MD CHIEF COMPLAINT: Shortness of breath, elevated D-dimer, referred. PLAN: Disposition: Admit MEDICAL DECISION MAKING: The patient is a pleasant 68-year-old woman with a past medical history of hypertension, hyperlipidemia, history of left lower extremity DVT diagnosed in August of this year not currently on anticoagulation due to cost who presents to the emergency department via walk-in referred by her PCP office for evaluation of shortness of breath for the past week with outpatient blood work performed yesterday demonstrating elevated D-dimer of 3800. The patient was sent to emergency department for CTA of the chest however the patient confirms that she has a severe CT IV contrast allergy where she "almost " and has a documented history of anaphylaxis to contrast. Patient denies any chest pain with inspiration. Denies any fevers, chills, cough, congestion, GI or symptoms. Review of the patient's record demonstrates that her ultrasound on 09/21/2023 demonstrated an occlusive deep venous thrombus that extended from proximal to distal femoral vein as well as into the femoral vein and peroneal veins. Patient was started on Xarelto at that time but reports that it was too expensive and when her initial supply ran out she began taking aspirin only. She reports the pain in her left thigh has only minimally improved and otherwise is unchanged. She further adds that she feels she has pain in her left upper arm which concerns her for blood clot as well. Patient reports she has had hypercoagulable testing in the recent past and understands that there were no positive findings. Patient was given a sample pack of Eliquis yesterday when she saw her PCP and today took 2 tablets this morning for total of 10 mg. EKG without overt acute ischemia. CXR negative for acute cardiopulmonary process per my personal preliminary review/interpretation. WBC and platelets within normal limits. H/H 11.7/33.8, decreased from August but no recent for comparison. Creatinine is 1.25 and chemistry without metabolic acidosis. Electrolytes and LFTs unremarkable. High-sensitivity troponin is 4.2, within normal limits. BNP is normal. Lipase is normal. Left upper extremity ultrasound and left lower extremity ultrasound were ordered and are pending. However, get given the patient's symptoms of shortness of breath with elevated D-dimer patient agrees with plan for admission for further evaluation and possible VQ scan. Given the patient did take an oral loading dose of Eliquis this morning additional anticoagulation deferred at this time. Case was discussed with MICHAEL Hernandez PAC, and [place] [facility] [place] who will evaluate the patient for admission. Ultrasound subsequently resulting and left upper extremity ultrasound was negative for DVT. Left lower extremity ultrasound demonstrates occlusive acute thrombus extending to the mid femoral vein distally into the popliteal vein. Further management per admitting team. Triage Nursing notes reviewed and agree them. Prior/external medical records reviewed Vital Signs: reviewed Differential diagnosis: Cardiac ischemia, aortic dissection, pulmonary embolism, pneumothorax, pneumonia, pericarditis, myocarditis, esophageal rupture, GERD, cholecystitis, pancreatitis, musculoskeletal, as well as other pathologies. ER treatment provided: See below. Diagnostics interpreted by me: ECG: Sinus rhythm with premature supraventricular complexes, 76 bpm, no overt ST elevation or depression, QTc 425, QRS 72. Cardiac Monitoring: An order for continuous cardiac monitoring was placed and demonstrated Sinus rhythm with premature supraventricular complexes, 76 bpm. Laboratory studies: See below Imaging studies: See below Consultation(s): MICHAEL Henrandez PAC, and Dr. [place] [facility] [place] HPI: The patient is a pleasant 68-year-old woman with a past medical history of hypertension, hyperlipidemia, history of left lower extremity DVT diagnosed in August of this year not currently on anticoagulation due to cost who presents to the emergency department via walk-in referred by her PCP office for evaluation of shortness of breath for the past week with outpatient blood work performed yesterday demonstrating elevated D-dimer of 3800. The patient was sent to emergency department for CTA of the chest however the patient confirms that she has a severe CT IV contrast allergy where she "almost " and has a documented history of anaphylaxis to contrast. Patient denies any chest pain with inspiration. Denies any fevers, chills, cough, congestion, GI or symptoms. Review of the patient's record demonstrates that her ultrasound on 09/21/2023 demonstrated an occlusive deep venous thrombus that extended from proximal to distal femoral vein as well as into the femoral vein and peroneal veins. Patient was started on Xarelto at that time but reports that it was too expensive and when her initial supply ran out she began taking aspirin only. She reports the pain in her left thigh has only minimally improved and otherwise is unchanged. She further adds that she feels she has pain in her left upper arm which concerns her for blood clot as well. Patient reports she has had hypercoagulable testing in the recent past and understands that there were no positive findings. Patient was given a sample pack of Eliquis yesterday when she saw her PCP and today took 2 tablets this morning for total of 10 mg. ROS: See above HPI for pertinent positives & negatives. A total of 10 systems reviewed and were otherwise negative. VITALS:See Below PHYSICAL EXAMINATION: GENERAL: Awake, alert, in no distress, BMI 53.7. HENT: Normocephalic, atraumatic. Oropharynx unremarkable. EYES: Normal conjunctiva. Sclera non-icteric. NECK: Supple. No nuchal rigidity. FROM. No JVD. RESPIRATORY: Clear to auscultation. CARDIAC: Regular rate, normal rhythm. Extremities warm and well perfused. Pulses equal. ABDOMEN: Soft, non-distended. No tenderness to palpation. No rebound or guarding. No masses. MUSCULOSKELETAL: Chest examination reveals no tenderness. The back is symmetrical on inspection without obvious abnormality. There is no CVA tenderness to palpation. No joint edema. \\EXTREMITIES: Left upper extremity demonstrates tenderness of the volar and medial aspect of the left upper arm without discoloration or edema. Calves are equal size bilaterally and non-tender. Mild edema. No discoloration. There is tenderness along the anterior/medial aspect of the left thigh. NEURO: Normal sensorium. No sensory or motor deficits noted. SKIN: No rash or jaundice noted. 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 Bloody stools with wiping/upcoming reason for procedure. Multiple sclerosis dx 1969's / . 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 History of fall multiple: most recent less than 6 mon ago. History of stroke x2 : 5 yr ago, 6 mon apart (February and July) - current: no residuals. Migraine headache with aura hx Cataract left Cognitive changes PSVT (paroxysmal supraventricular tachycardia) have arrythmia, when happens : can feel it coming on - pass out and have convulsions. A few months ago last episode : did not pass out or have convulsion. ED visit [place]. Hair loss TIA (transient ischemic attack) hx / multiple Adenomatous colon polyp hx Generalized osteoarthritis of multiple sites Hyperlipidemia borderline Essential hypertension Lumbar disc disease Obstructive sleep apnea HX CPAP/no use over past couple yrs. Need a new one. Hx of esophageal spasm PT REPORTS SCHATZKI RING GERD (gastroesophageal reflux disease) Anxiety Depression History of DVT of lower extremity L LEG 1969 Hypothyroidism Asthma overall well controlled/seasonal flares/nothing recent. Last use rescue inhaler Jul 2022 with COVID. Surgical History History of right cataract surgery History of breast biopsy History of open reduction and internal fixation (ORIF) procedure LEFT ANKLE FEBRUARY 2019 (HARDWARE INTACT) REVISION IN 2018 H/O total hysterectomy History of esophagogastroduodenoscopy (EGD) Status post hysteroscopic ablation of endometrium Status post placement of implantable loop recorder current Hx of cardiac cath NO FINDINGS/NO STENTS Hx of total knee arthroplasty LEFT ([place] 2017) Hx of wisdom tooth extraction Hx of tonsillectomy History of colonoscopy May 2018 Hx of cervical polypectomy Hx of dilation and curettage Hx of tubal ligation Hx of lumpectomy MULTIPLE (BOTH BREASTS) Hx of bilateral breast reduction surgery Family History Father Diabetes mellitus, type 2 Hypertension Stroke Multiple strokes Alzheimer disease Deep vein thrombosis Dementia Mother Hypertension Anxiety disorder Migraine headache Mitral valve prolapse Lewy body disease Dementia Depression Son Anxiety disorder Asthma Daughter Asthma Brother Multiple sclerosis Seizure Diabetes Thrombophlebitis Deep vein thrombosis, Onset Age: 59 Coronary heart disease Sister Multiple sclerosis Grandmother (Maternal) Hypertension Stroke Dementia Depression Anxiety disorder Grandfather (Maternal) Alzheimer disease Grandmother (Paternal) Clotting disorder Cancer Leukemia Grandfather (Paternal) Myocardial infarction Hypertension Aunt Breast cancer Depression Aunt Deep vein thrombosis Great aunt Grandmother (Paternal) Thrombophlebitis, Onset Age: 82 Uncle Dementia Other Family hx of colon cancer Denies family history of Ovarian cancer Prostate cancer Colorectal cancer Pulmonary embolism Colonic polyp Social History Smoking Status: Never smoker Second Hand Exposure: Yes ( A CHILD); Do You Dip or Chew Tobacco: No; Hx Alcohol Use: No Hx Substance Use: No Preferred Language: Frisian Communication Ability: Effective Visual Impairment: Limited Hearing Ability: Normal Metal Riveter Required: No Beliefs That Will Affect Care: None marital status: Current Living Situation: Spouse and Family current occupational status: disabled 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 [employer] How many Children do You have: 7 Feels Safe at Home: Yes Diet: regular caffeine: Yes during the past year weight has: remained stable Dental Care, Regularly: No Physical Activity Frequency: Does not Exercise Seatbelt Use: always Sunscreen Use: Yes Gender Identity: Female Assistive Devices: Glasses and Other Allergies Allergies Allergy/AdvReac Type Severity Reaction Status Date / Time Iodinated Contrast Media Allergy Severe ANAPHALAXIS Verified 03/16/24 15:42 sertraline Allergy Severe "didn't Verified 03/16/24 15:42 work very well" doxycycline Allergy Unknown RASH Verified 03/16/24 15:42 hazelnut Allergy Unknown Hives Verified 03/16/24 15:42 mometasone furoate Allergy Unknown pt doesn't Verified 03/16/24 15:42 remember this one naproxen Allergy Unknown pt doesn't Verified 03/16/24 15:42 remember having any reaction to naproxen Penicillins Allergy Unknown RASH Verified 03/16/24 15:42 [id number] Reductase Allergy Unknown muscle Verified 03/16/24 15:42 Inhibitor pains and [[id number]-Rgi Reductase weakness Inhibitor] clopidogrel AdvReac Unknown MUSCLE Verified 03/16/24 15:42 ACHES Home Meds Home Medications Medication Instructions Recorded Confirmed acetaminophen 325 mg tablet 650 mg PO Q4H PRN Pain 05/25/19 03/17/24 (Tylenol) loratadine 10 mg tablet 10 mg PO DAILY PRN ALLERGY RELIEF 05/25/19 03/17/24 ascorbic acid (vitamin C) 1,000 mg 1,000 mg PO QAM 02/08/22 03/17/24 tablet,extended release vitamin B complex 1 cap PO QAM 05/16/23 03/17/24 apixaban 5 mg tablet (Eliquis) 10 mg PO BID 03/17/24 03/17/24 venlafaxine 150 mg 150 mg PO HS 03/17/24 03/17/24 capsule,extended release 24 hr (Effexor XR) venlafaxine 75 mg capsule,extended 75 mg PO QAM 03/17/24 03/17/24 release 24 hr (Effexor XR) Previous Rx's Medication Instructions Recorded albuterol sulfate 90 mcg/actuation 2 puff inhalation Q4H PRN 08/15/20 aerosol inhaler Shortness Of Breath #18 grams Auto Titrating CPAP #1 ea 12/12/21 CPAP Supplies #1 ea 12/12/21 levothyroxine 25 mcg tablet 25 mcg PO QAM #90 tabs 04/15/23 ergocalciferol (vitamin D2) 1,250 1,250 mcg PO WK #14 caps 10/08/23 mcg (50,000 unit) capsule (Vitamin D2) hydroxyzine HCl 25 mg tablet 25 mg PO TID PRN anxiety #60 tabs 10/08/23 Jobst Stockings Knee high 38 cm #4 ea 12/31/23 lisinopril 20 1 tab PO QPM #90 tabs 12/31/23 mg-hydrochlorothiazide 12.5 mg tablet stocking Jose #1 ea 12/31/23 verapamil 120 mg 24 hr 120 mg PO QPM #90 caps 03/01/24 capsule,extended release gabapentin 100 mg capsule 100 mg PO TID #90 caps 03/16/24 apixaban 5 mg tablet (Eliquis) 5 mg PO BID #60 tabs 03/17/24 Results & Data (ED) Vital Signs Vital Signs - 24 hr 03/17/24 08:23 03/17/24 08:40 03/17/24 08:45 Temperature 36.8 C Temperature Source Temporal Artery Scan Pulse Rate 85 78 75 Pulse Rate [Right Finger] Pulse Rate from SpO2 Sensor Respiratory Rate 20 18 Respiratory Effort / Characteristics Respiratory Depth Respiratory Pattern Blood Pressure 113/72 Blood Pressure [Right Arm] Blood Pressure Mean 85 Blood Pressure Mean [Right Arm] Pulse Oximetry 94 Oxygen Delivery Method Room Air Sepsis Recent Fever Within 48 Hours No Sepsis New/Unexplained Change in Mental Status No Sepsis Action Taken by Nursing No Action Required 03/17/24 08:50 03/17/24 09:24 03/17/24 09:36 Temperature Temperature Source Pulse Rate 69 67 Pulse Rate [Right Finger] Pulse Rate from SpO2 Sensor Respiratory Rate 19 16 Respiratory Effort / Characteristics Respiratory Depth Respiratory Pattern Blood Pressure 145/82 H Blood Pressure [Right Arm] Blood Pressure Mean 103 Blood Pressure Mean [Right Arm] Pulse Oximetry 96 Oxygen Delivery Method Room Air Sepsis Recent Fever Within 48 Hours Sepsis New/Unexplained Change in Mental Status Sepsis Action Taken by Nursing 03/17/24 11:44 03/17/24 11:44 03/17/24 12:00 Temperature Temperature Source Pulse Rate Pulse Rate [Right Finger] Pulse Rate from SpO2 Sensor Respiratory Rate Respiratory Effort / Characteristics Respiratory Depth Respiratory Pattern Blood Pressure 141/68 H 141/68 H 139/87 Blood Pressure [Right Arm] Blood Pressure Mean 93 93 92 Blood Pressure Mean [Right Arm] Pulse Oximetry Oxygen Delivery Method Sepsis Recent Fever Within 48 Hours Sepsis New/Unexplained Change in Mental Status Sepsis Action Taken by Nursing 03/17/24 12:06 03/17/24 12:51 03/17/24 14:14 Temperature Temperature Source Pulse Rate 66 61 Pulse Rate [Right Finger] 72 Pulse Rate from SpO2 Sensor 65 Respiratory Rate 19 18 Respiratory Effort / Characteristics Non-Labored Spontaneous Respiratory Depth Normal Respiratory Pattern Regular Blood Pressure Blood Pressure [Right Arm] 113/70 Blood Pressure Mean Blood Pressure Mean [Right Arm] 84 Pulse Oximetry 97 99 Oxygen Delivery Method Room Air Sepsis Recent Fever Within 48 Hours Sepsis New/Unexplained Change in Mental Status Sepsis Action Taken by Nursing Laboratory Data Attestation: I reviewed the patient's lab results. 03/17/24 09:02 03/17/24 09:02 Lab Results 03/17/24 Range/Units 09:02 WBC 6.84 (4.8-10.8) K/ul RBC 3.61 L (4.20-5.40) M/uL Hgb 11.7 L (12.0-16.0) g/dl Hct 33.8 L (37.0-47.0) % MCV 93.6 (80.0-100.0) fL MCH 32.4 (25.0-34.0) pg MCHC 34.6 (32.0-36.0) g/dL RDW Std Deviation 42.7 (36.4-46.3) fL RDW Coeff of Joanna 12.4 (11.5-14.5) % Plt Count 237 (130-400) K/uL MPV 11.5 (9.4-12.4) fL Immature Gran % (Auto) 0.1 % Neut % (Auto) 51.3 % Lymph % (Auto) 36.0 % Eagle % (Auto) 8.3 % Eos % (Auto) 3.4 % Baso % (Auto) 0.9 % Neut # (Auto) 3.51 (1.40-6.50) K/uL Lymph # (Auto) 2.46 (1.20-3.40) K/uL Eagle # (Auto) 0.57 (0.11-0.59) K/uL Eos # (Auto) 0.23 (0.00-0.50) K/uL Baso # (Auto) 0.06 (0.00-0.20) K/uL Immature Gran # (Auto) 0.01 (0.01-0.20) K/uL PT 10.6 (9.0-12.0) Seconds INR 1.0 (0.9-1.1) APTT 23 (21-31) Seconds PTT Ratio 0.9 Sodium 138 (136-145) mmol/L Potassium 3.9 (3.5-5.1) mmol/L Chloride 104 (98-107) mmol/L Carbon Dioxide 25 (21-32) mmol/L Anion Gap 9 (3-11) BUN 24 H (6-23) mg/dl Creatinine 1.25 H (0.6-1.2) mg/dl Est Cr Clr Drug Dosing 53.2 ml/min Est GFR ( Amer) 51.5 ml/min Est GFR (Non-Af Amer) 44.5 ml/min BUN/Creatinine Ratio 19.2 (10-20) Glucose 90 (70-99(Fasting)) mg/dl Calcium 9.5 (8.6-10.3) mg/dl Magnesium 1.8 (1.7-2.4) mg/dl Total Bilirubin 0.7 (0.2-1.0) mg/dl AST 16 (13-39) U/L ALT 13 (7-52) U/L Alkaline Phosphatase 84 (34-104) U/L Troponin I High Sens 4.2 (0-14) pg/ml B-Natriuretic Peptide 17 (0-100) pg/ml Total Protein 7.0 (6.0-8.3) gm/dl Albumin 4.1 (3.4-5.0) gm/dl Globulin 2.9 (2.5-4.0) gm/dl Albumin/Globulin Ratio 1.4 (0.9-2) Lipase 33 (11-82) U/L Administered Medications Discontinued Medications Gabapentin (Gabapentin 100 Mg Cap) 100 mg PO NOW STA Stop: 03/17/24 13:38 Last Admin: 03/17/24 14:19 Dose: 100 mg Documented By: Lisinopril/HCTZ (Lisinopril/Hctz 20/12.5mg 1 Tab Tab) 1 tab PO NOW STA Stop: 03/17/24 13:37 Last Admin: 03/17/24 14:19 Dose: 1 tab Documented By: Sodium Chloride (Nss) 500 mls @ 125 mls/hr IV .Q4H ERIC Stop: 04/16/24 09:29 Last Admin: 03/17/24 14:21 Dose: 125 mls/hr Documented By: Infusion: 03/17/24 13:44 Dose: Infused Documented By: Admin: 03/17/24 09:32 Dose: 125 mls/hr Documented By: BRANDON Venlafaxine HCl (Venlafaxine Hcl Xr 75 Mg Capxr) 75 mg PO NOW STA Stop: 03/17/24 13:37 Last Admin: 03/17/24 14:19 Dose: 75 mg Documented By: Verapamil HCl (Verapamil Hcl 120 Mg Tabcr) 120 mg PO NOW STA Stop: 03/17/24 13:37 Last Admin: 03/17/24 14:19 Dose: 120 mg Documented By: MR Imaging Data Radiologist's Impression: Chest X-Ray 03/17/24 08:50 XR chest 1V portable CLINICAL HISTORY: sob TECHNIQUE: Single frontal radiograph of the chest was obtained. Comparison: None available at the time of this dictation. FINDINGS: Exam is limited by underpenetration. Battery-powered device is seen particularly over the cardiac silhouette. The cardiomediastinal silhouette is normal. The lungs are clear. No evidence of pleural effusion or pneumothorax. IMPRESSION: No acute chest disease. ACT 112: Negative or not required by law. Electronically signed by: Chuy Soriano M.D. 03/17/2024 9:34 AM Extremity Venous Study 03/17/24 09:11 US venous doppler UE LT CLINICAL HISTORY: elevated d-dimer pain PROCEDURE: Left upper extremity real-time compression venous ultrasound with Duplex and color Doppler imaging. Comparison: None available at the time of this dictation. FINDINGS/IMPRESSION: There is normal compressibility of the deep venous system from the forearm through the subclavian vein. Normal vascular flow is currently identified. Evaluation of the basilar artery is limited in the cephalic arteries not seen. ACT 112: Negative or not required by law. Electronically signed by: Chuy Soriano M.D. 03/17/2024 11:10 AM Venous Doppler Study 03/17/24 09:11 LEFT LOWER EXTREMITY VENOUS DOPPLER HISTORY: elevated d-dimer pain COMPARISON STUDY: 09/21/2023 FINDINGS: The calf veins are not diagnostically visualized. Occlusive likely acute thrombus extends from the mid femoral vein distally into the popliteal vein. The imaged iliac vein appears patent. IMPRESSION: Likely acute DVT as above. ACT 112: Negative or not required by law. Electronically signed by: Gomez Benavides M.D. 03/17/2024 11:52 AM Pulmonary Perfusion Imaging 03/17/24 12:06 NM pul perfusion CLINICAL HISTORY: LLE DVT, AGUILAR, contrast allergy Technique: Perfusion imaging was performed in multiple projections after the intravenous injection of 4.9 mCi of Tc-99m labeled macroaggregated albumin (MAA). Comparison: Comparison is made to chest radiograph 03/17/2024 FINDINGS/IMPRESSION: Homogeneous perfusion was seen bilaterally. Low probability of pulmonary embolism. ACT 112: Negative or not required by law. Electronically signed by: Chuy Soriano M.D. 03/17/2024 1:50 PM Discharge Plan Visit Data Chief Complaint: Referred by Doctor Stated Complaint: POSSIBLE BLOOD CLOT ED Provider: Christiano Nichols Discharge Problem: Deep vein thrombosis of left femoral vein, D-dimer, elevated, Shortness of breath Forms Stand Alone Forms: My [facility] [place] [employer] Prescriptions Prescriptions: No Action verapamil 120 mg capsule,ext rel. pellets 24 hr 120 mg PO QPM Qty: 90 1RF albuterol sulfate 90 mcg/actuation HFA aerosol inhaler 2 puff INHALATION Q4H PRN (Reason: Shortness Of Breath) Qty: 18 1RF ascorbic acid (vitamin C) 1,000 mg tablet extended release 1,000 mg PO QAM levothyroxine 25 mcg tablet 25 mcg PO QAM Qty: 90 3RF (DME) Auto Titrating CPAP Misc .Route Qty: 1 0RF Rx Instructions: Auto CPAP 5 to 15 cm of water, heated humidification, compliance download capabilities, (DME) CPAP Supplies Misc .Route Qty: 1 0RF Rx Instructions: Tubing, mask fit patient comfort, filters and supplies. Lifetime need acetaminophen [Tylenol] 325 mg tablet 650 mg PO Q4H PRN (Reason: Pain) loratadine 10 mg tablet 10 mg PO DAILY PRN (Reason: ALLERGY RELIEF) gabapentin 100 mg capsule 100 mg PO TID Qty: 90 2RF Eliquis 5 mg tablet 5 mg PO BID Qty: 60 5RF hydroxyzine HCl 25 mg tablet 25 mg PO TID PRN (Reason: anxiety) Qty: 60 5RF ergocalciferol (vitamin D2) [Vitamin D2] 1,250 mcg (50,000 unit) capsule 1,250 mcg PO WK Qty: 14 3RF Rx Instructions: Friday lisinopril-hydrochlorothiazide 20-12.5 mg tablet 1 tab PO QPM Qty: 90 1RF (DME) Jobst Stockings Knee high 38 cm See Rx Instructions .Route .MEDSUPPLY Qty: 4 2RF Rx Instructions: As directed (DME) stocking Jose See Rx Instructions .Route .MEDSUPPLY Qty: 1 0RF Rx Instructions: As directed vitamin B complex Capsule 1 cap PO QAM venlafaxine [Effexor XR] 75 mg capsule,extended release 24hr 75 mg PO QAM venlafaxine [Effexor XR] 150 mg capsule,extended release 24hr 150 mg PO HS Eliquis 5 mg Tablet 10 mg PO BID Rx Instructions: Pt was given samples on 03/16/24 by her PCP. Doesn't know when she's supposed to stop taking the medication. Referrals Referrals: Vernon Leiva MD [Primary Care Provider] - Discharge Problem: Deep vein thrombosis of left femoral vein Qualifiers: Chronicity: acute Qualified Code(s): I82.412 - Acute embolism and thrombosis of left femoral vein
[2024-03-17 09:27] LABS: Basophils # (auto) 0.06 K/uL (0.00-0.20); Basophils % (auto) 0.9 %; Eosinophils # (auto) 0.23 K/uL (0.00-0.50); Eosinophils % (auto) 3.4 %; Hematocrit (blood only) 33.8 % (37.0-47.0); Hemoglobin 11.7 g/dl (12.0-16.0); Immature Granulocytes # (auto) 0.01 K/uL (0.01-0.20); Immature Granulocytes % (auto) 0.1 %; Lymphocytes # (auto) 2.46 K/uL (1.20-3.40); Mean Corpuscular Hemoglobin 32.4 pg (25.0-34.0); Mean Corpuscular Hgb Conc 34.6 g/dL (32.0-36.0); Mean Corpuscular Volume 93.6 fL (80.0-100.0); Mean Platelet Volume 11.5 fL (9.4-12.4); Monocytes # (auto) 0.57 K/uL (0.11-0.59); Monocytes % (auto) 8.3 %; Neutrophils # (auto) 3.51 K/uL (1.40-6.50); Neutrophils % (auto) 51.3 %; Platelet Count 237 K/uL (130-400); RDW Coefficient of Variation 12.4 % (11.5-14.5); RDW Standard Deviation 42.7 fL (36.4-46.3); Red Blood Count 3.61 M/uL (4.20-5.40); White Blood Count 6.84 K/ul (4.8-10.8)
[2024-03-17] MEDS: SODIUM CHLORIDE 0.9% 500 ML IV SCH (09:32)
--- NOTE | 2024-03-17 09:35 | XRay Report ---
XR chest 1V portable CLINICAL HISTORY: sob TECHNIQUE: Single frontal radiograph of the chest was obtained. Comparison: None available at the time of this dictation. FINDINGS: Exam is limited by underpenetration. Battery-powered device is seen particularly over the cardiac esme houette. The cardiomediastinal silhouette is normal. The lungs are clear. No evidence of pleural effu micheline or pneumothorax. IMPRESSION: No acute chest disease. ACT 112: Negative or not required by law. Electronically signed by: Chuy Soriano M.D. 03/17/2024 9:34 AM
[2024-03-17 09:37] LABS: Albumin Globulin Ratio 1.4 (0.9-2); Albumin Level 4.1 gm/dl (3.4-5.0); BUN Creatinine Ratio 19.2 (10-20); Bilirubin,Total 0.7 mg/dl (0.2-1.0); Calcium 9.5 mg/dl (8.6-10.3); Creatinine Clr Calc Pharmacy 53.2 ml/min; Est GFR (African American) 51.5 ml/min; Est GFR (Non-African American) 44.5 ml/min; Globulin 2.9 gm/dl (2.5-4.0); Magnesium 1.8 mg/dl (1.7-2.4); Potassium 3.9 mmol/L (3.5-5.1)
[2024-03-17 09:42] LABS: Troponin I High Sensitivity 4.2 pg/ml (0-14)
--- NOTE | 2024-03-17 10:25 | History & Physical Report ---
Date of Service March 17, 2024 Assessment & Plan (1) Extremity pain: Plan: Admit to med/telemetry on pulse asymmetry Currently stable nontoxic-appearing Was sent to the ED this a.m. at the recommendation of her PCP due to concerns for recurrent DVTs in the left lower extremity and possible left upper extremity due to left upper/lower extremity pain/swelling, back pain, and intermittent chest pain Outpatient D-dimer obtained on 03/16/2024 is elevated at 3800 Patient had an unremarkable hypercoagulable workup [facility] of this year including lupus anticoagulant, protein C, protein S, antithrombin 3, and factor V Leiden Unsure if her previous DVT diagnosed in August completely resolved that she never had repeat imaging after she stopped taking her Xarelto Patient did have 10 mg p.o. Eliquis at 8 AM this morning Will plan to begin warfarin with Lovenox bridge at this time to assist patient with lower cost anticoagulation Will plan to start warfarin this evening and first dose of Lovenox at approximately 8 PM tonight Will follow-up with extremity Dopplers and TTE Will also obtain V/Q study Heart healthy diet AM CBC, BMP, mag, PT/ (2) Elevated d-dimer: Plan: See extremity pain (3) Sleep apnea: Plan: Will plan to hold HCTZ until V/Q studies obtained as we would not want to continue CPAP if she is in acute PE (4) Benign essential hypertension: Plan: Currently stable Will plan to continue lisinoprilhydrochlorothiazide (5) Agoraphobia: Plan: Continue Effexor and as needed hydroxyzine (6) PSVT (paroxysmal supraventricular tachycardia): Plan: Currently stable continue verapamil (7) DVT (deep venous thrombosis): Plan The patient was discussed with Dr. Hester at the time of admission History of Present Illness Chief Complaint: Elevated D-dimer, concern for DVT/PE Primary Care Provider: Vernon Leiva MD Gu[place] is a 68-year-old female with a past medical history significant for previous DVT (completed Eliquis therapy), hypertension, hypothyroidism, VESTA on CPAP, morbid obesity, MS who presented to the [facility] ED on 03/17/2024 at the recommendation of her PCP due to concerns for recurrent left lower extremity DVT, possible left upper extremity DVT, and PEs. The patient was seen at her PCPs office on 03/16/2024 with complaints of pleuritic chest pain, dyspnea, and pain in the left upper and lower extremities. An outpatient D- dimer was obtained yesterday which was noted to be elevated at 3800. The patient remained stable while in the ED. Labs including CBC, CMP, high- sensitivity troponin, and BNP were unremarkable. The patient is unable to receive CT contrast that she had a severe anaphylactic reaction in the past. Venous Dopplers of the left lower and left upper extremities were ordered in the ED prior to admission were currently being obtained at this time of admission. Patient was lying in bed in no acute distress at the time of exam she had recently returned from obtaining her left upper and lower extremity Dopplers. She confirms that she had been taking her Xarelto as prescribed for approximately 3 months after diagnosed with her left lower extremity DVT August of this past year. However, she states she stopped taking it because she was having to pay approximately $800 a month. She started taking a full dose aspirin after she stopped taking the Xarelto to try and help prevent recurrent blood clots. She presented to the PCP office yesterday due to ongoing left upper and lower extremity pain/swelling similar to previous DVTs along with left-sided back/chest pain. She confirms that she was given a starter pack of Eliquis by her PCP yesterday, she took 10 mg at approximately 8 AM this morning. This was the first dose of Eliquis she took. Denies recent fever/chills, hemoptysis, abdominal pain, nausea/vomiting, urinary symptoms, diarrhea/melena, and recent trauma. We discussed CODE STATUS, she wishes to be a condition code as she would not want CPR or defibrillation in the event of cardiac arrest. She would want trial of intubation in the event of respiratory failure. She will her and sons to make decisions for her if she cannot make himself. Per chart review, the patient had her first DVT when she was 24 years old and was treated with Xarelto. She was diagnosed with another DVT in the left lower extremity in August of this year and was restarted on Xarelto. Per her PCP note from 12/31/2023, the patient discontinued Xarelto for self because it was reportedly too expensive for her. She then started taking it daily full dose aspirin and statin. Her PCP referred her to hematology for hypercoagulable workup but the patient missed this appointment. Please refer to Dr. Hester's attestation for any changes to the treatment plan Allergies Allergy/AdvReac Type Severity Reaction Status Date / Time Iodinated Contrast Media Allergy Severe ANAPHALAXIS Verified 03/16/24 15:42 sertraline Allergy Severe "didn't Verified 03/16/24 15:42 work very well" doxycycline Allergy Unknown RASH Verified 03/16/24 15:42 hazelnut Allergy Unknown Hives Verified 03/16/24 15:42 mometasone furoate Allergy Unknown pt doesn't Verified 03/16/24 15:42 remember this one naproxen Allergy Unknown pt doesn't Verified 03/16/24 15:42 remember having any reaction to naproxen Penicillins Allergy Unknown RASH Verified 03/16/24 15:42 [id number]-[id number] Reductase Allergy Unknown muscle Verified 03/16/24 15:42 Inhibitor pains and [Pconhsj-Vyo-Kqh Reductase weakness Inhibitor] clopidogrel AdvReac Unknown MUSCLE Verified 03/16/24 15:42 ACHES Home Medications Medication Instructions Recorded Confirmed Type acetaminophen 325 mg tablet 650 mg PO Q4H PRN Pain 05/25/19 03/17/24 History (Tylenol) loratadine 10 mg tablet 10 mg PO DAILY PRN ALLERGY RELIEF 05/25/19 03/17/24 History albuterol sulfate 90 mcg/actuation 2 puff inhalation Q4H PRN 08/15/20 03/17/24 Rx aerosol inhaler Shortness Of Breath #18 grams Auto Titrating CPAP #1 ea 12/12/21 03/16/24 Rx CPAP Supplies #1 ea 12/12/21 03/16/24 Rx ascorbic acid (vitamin C) 1,000 mg 1,000 mg PO QAM 02/08/22 03/17/24 History tablet,extended release levothyroxine 25 mcg tablet 25 mcg PO QAM #90 tabs 04/15/23 03/17/24 Rx vitamin B complex 1 cap PO QAM 05/16/23 03/17/24 History ergocalciferol (vitamin D2) 1,250 1,250 mcg PO WK #14 caps 10/08/23 03/17/24 Rx mcg (50,000 unit) capsule (Vitamin D2) hydroxyzine HCl 25 mg tablet 25 mg PO TID PRN anxiety #60 tabs 10/08/23 03/17/24 Rx Jobst Stockings Knee high 38 cm #4 ea 12/31/23 03/16/24 Rx lisinopril 20 1 tab PO QPM #90 tabs 12/31/23 03/17/24 Rx mg-hydrochlorothiazide 12.5 mg tablet stocking Jose #1 ea 12/31/23 03/16/24 Rx verapamil 120 mg 24 hr 120 mg PO QPM #90 caps 03/01/24 03/17/24 Rx capsule,extended release gabapentin 100 mg capsule 100 mg PO TID #90 caps 03/16/24 03/17/24 Rx apixaban 5 mg tablet (Eliquis) 5 mg PO BID #60 tabs 03/17/24 03/17/24 Rx apixaban 5 mg tablet (Eliquis) 10 mg PO BID 03/17/24 03/17/24 History venlafaxine 150 mg 150 mg PO HS 03/17/24 03/17/24 History capsule,extended release 24 hr (Effexor XR) venlafaxine 75 mg capsule,extended 75 mg PO QAM 03/17/24 03/17/24 History release 24 hr (Effexor XR) Past Med/Surg History Problem List (Updated 03/17/24 @ 11:08 by Josh Dela Cruz PA-C) Extremity pain Phlebitis of left leg Elevated d-dimer Left lumbar radiculitis Venous insufficiency CKD (chronic kidney disease) Sleep apnea Vitamin D deficiency Benign essential hypertension Agoraphobia Depression with anxiety 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 Bloody stools with wiping/upcoming reason for procedure. Multiple sclerosis dx 1969's / . 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 History of fall multiple: most recent less than 6 mon ago. History of stroke x2 : 5 yr ago, 6 mon apart (February and July) - current: no residuals. Migraine headache with aura hx Cataract left Cognitive changes PSVT (paroxysmal supraventricular tachycardia) have arrythmia, when happens : can feel it coming on - pass out and have convulsions. A few months ago last episode : did not pass out or have convulsion. ED visit [place]. Hair loss TIA (transient ischemic attack) hx / multiple Adenomatous colon polyp hx Generalized osteoarthritis of multiple sites Hyperlipidemia borderline Essential hypertension Lumbar disc disease Obstructive sleep apnea HX CPAP/no use over past couple yrs. Need a new one. Hx of esophageal spasm PT REPORTS SCHATZKI RING GERD (gastroesophageal reflux disease) Anxiety Depression History of DVT of lower extremity L LEG 1969 Hypothyroidism Asthma overall well controlled/seasonal flares/nothing recent. Last use rescue inhaler Jul 2022 with COVID. Surgical History History of right cataract surgery History of breast biopsy History of open reduction and internal fixation (ORIF) procedure LEFT ANKLE FEBRUARY 2019 (HARDWARE INTACT) REVISION IN 2018 H/O total hysterectomy History of esophagogastroduodenoscopy (EGD) Status post hysteroscopic ablation of endometrium Status post placement of implantable loop recorder current Hx of cardiac cath NO FINDINGS/NO STENTS Hx of total knee arthroplasty LEFT ([place] 2017) Hx of wisdom tooth extraction Hx of tonsillectomy History of colonoscopy May 2018 Hx of cervical polypectomy Hx of dilation and curettage Hx of tubal ligation Hx of lumpectomy MULTIPLE (BOTH BREASTS) Hx of bilateral breast reduction surgery Family History (Updated 12/31/23 @ 14:38 by Vernon Leiva MD) Father Diabetes mellitus, type 2 Hypertension Stroke Multiple strokes Alzheimer disease Deep vein thrombosis Dementia Mother Hypertension Anxiety disorder Migraine headache Mitral valve prolapse Lewy body disease Dementia Depression Son Anxiety disorder Asthma Daughter Asthma Brother Multiple sclerosis Seizure Diabetes Thrombophlebitis Deep vein thrombosis, Onset Age: 59 Coronary heart disease Sister Multiple sclerosis Grandmother (Maternal) Hypertension Stroke Dementia Depression Anxiety disorder Grandfather (Maternal) Alzheimer disease Grandmother (Paternal) Clotting disorder Cancer Leukemia Grandfather (Paternal) Myocardial infarction Hypertension Aunt Breast cancer Depression Aunt Deep vein thrombosis Great aunt Grandmother (Paternal) Thrombophlebitis, Onset Age: 82 Uncle Dementia Other Family hx of colon cancer Denies family history of Ovarian cancer Prostate cancer Colorectal cancer Pulmonary embolism Colonic polyp Social History Smoking Status: Never smoker Second Hand Exposure: Yes ( A CHILD); Do You Dip or Chew Tobacco: No; Hx Alcohol Use: No Hx Substance Use: No Preferred Language: Tuvaluan Communication Ability: Effective Visual Impairment: Limited Hearing Ability: Normal Rn First Assistant Required: No Beliefs That Will Affect Care: None marital status: Current Living Situation: Spouse and Family current occupational status: disabled 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 [employer] How many Children do You have: 7 Feels Safe at Home: Yes Diet: regular caffeine: Yes during the past year weight has: remained stable Dental Care, Regularly: No Physical Activity Frequency: Does not Exercise Seatbelt Use: always Sunscreen Use: Yes Gender Identity: Female Assistive Devices: Glasses and Other Physical Exam Physical Exam: Physical Exam: General: In no acute distress, stated age, well-nourished, non-toxic appearing HEENT: Normocephalic, atraumatic, no scleral icterus, pupils around round, symmetrical, and reactive to light, moist mucus membranes, trachea midline, no thyromegaly Chest/Pulm: No respiratory distress, symmetrical chest expansion, clear breath sounds throughout Cardiac: RRR, no murmurs noted Abdomen: Negative for ascites and bruising, normoactive bowel sounds, soft, non-tender to palpation throughout Musculoskeletal: Symmetrical and without signs of acute trauma, upper and lower extremities with full ROM, no atrophy, spasticity, or flaccidity Extremities: Radial, dorsalis pedis, and posterior tibial pulses are intact and symmetrical, no significant differences in swelling or skin color in the BL upper and lower extremities Skin: Warm, dry, no rashes , lesions, or scars noted Neuro: Alert and oriented to person, place, month, year, and president, no focal defects, no tremors noted Psych: No acute distress, calm and cooperative during the exam Results & Data Results & Data Vital Signs (Past 12 Hours) Vital Signs Temp Pulse Resp BP Pulse Ox O2 Del Method 03/17/24 08:50 Room Air 03/17/24 08:40 78 03/17/24 08:23 36.8 C 85 20 113/72 94 Room Air Laboratory Results Abnormal lab results 03/17/24 Range/Units 09:02 RBC 3.61 L (4.20-5.40) M/uL Hgb 11.7 L (12.0-16.0) g/dl Hct 33.8 L (37.0-47.0) % BUN 24 H (6-23) mg/dl Creatinine 1.25 H (0.6-1.2) mg/dl ECG Additional Comments: Sinus rhythm with Premature supraventricular complexes Otherwise normal ECG No previous ECGs available Code Status & VTE Plan Code Status Conditional; see HPI VTE Prophylaxis Plan VTE Prophylaxis will be ordered: Yes Supervising Physician Co-Signing Physician Notes I personally saw and examined the patient. I verified all white points and agree with Josh Dela Cruz PA-C with the following exceptions and/or additions: 68 year old with prior DVT not adequately treated presents to the ER due to shortness of breath and left leg swelling with outpatient elevated d-dimer therefore referred to the ER. O/E HS RRR, no murmurs, Chest CTAB, Abdo SNT, left calf circumference > right calf with trace pitting edema A/P DVT - does not involve iliac therefore low suspicion of pelvic compression. Given high BMI would recommend Lovenox/warfarin rather than DOAC irregardless of affordability. Hopefully we can obtain an at home INR machine or home health to come in to obtain INR monitoring as she has difficulty going to appointments. Anaphylaxis to prior iodinated contrast therefore will obtain V/Q scan. TTE to assess for right heart strain but reassuringly BNP and troponin are normal. PCP to consider lifelong anticoagulation. PG Care Time/CCT Total # of Minutes Spent Total Time Spent with Patient: Total time spent is greater than 50% in coordination of care (as documented) at patient's floor/unit and/or counseling patient: Coding [place] [address] INT INP/OBS CARE 3/75MIN Patient Type Established Medical Decision Making High Complexity Diagnoses Extremity pain M79.609 Elevated d-dimer R79.89 Obstructive sleep apnea syndrome G47.33 Sleep apnea type: obstructive Benign essential hypertension I10 Agoraphobia F40.00 PSVT (paroxysmal supraventricular tachycardia) I47.1 DVT (deep venous thrombosis) I82.402 Affected thrombotic vein of extremity: unspecified vein of extremity Chronicity: acute DVT location: lower extremity Laterality: left (3) Sleep apnea Sleep apnea type: obstructive Qualified Code(s): G47.33 - Obstructive sleep apnea (adult) (pediatric) (7) DVT (deep venous thrombosis) Affected thrombotic vein of extremity: unspecified vein of extremity Chronicity: acute DVT location: lower extremity Laterality: left Qualified Code(s): I82.402 - Acute embolism and thrombosis of unspecified deep veins of left lower extremity
[2024-03-17 10:44] LABS: Partial Thromboplastin Ratio 0.9; Partial Thromboplastin Time 23 Seconds (21-31); Prothrombin Time 10.6 Seconds (9.0-12.0)
--- NOTE | 2024-03-17 11:12 | Ultrasound Report ---
US venous doppler UE LT CLINICAL HISTORY: elevated d-dimer pain PROCEDURE: Left upper extremity real-time compression venous ultrasound with Duplex and color Doppler imaging. Comparison: None available at the time of this dictation. FINDINGS/IMPRESSION: There is normal compressibility of the deep venous system from the forearm through the subclavian vei n. Normal vascular flow is currently identified. Evaluation of the basilar artery is limited in the c ephalic arteries not seen. ACT 112: Negative or not required by law. Electronically signed by: Chuy Soriano M.D. 03/17/2024 11:10 AM
[2024-03-17] MEDS ORDERED: ACETAMINOPHEN 325 MG TAB PO PRN (11:38)
--- NOTE | 2024-03-17 11:53 | Ultrasound Report ---
LEFT LOWER EXTREMITY VENOUS DOPPLER HISTORY: elevated d-dimer pain COMPARISON STUDY: 09/21/2023 FINDINGS: The calf veins are not diagnostically visualized. Occlusive likely acute thrombus extends f rom the mid femoral vein distally into the popliteal vein. The imaged iliac vein appears patent. IMPRESSION: Likely acute DVT as above. ACT 112: Negative or not required by law. Electronically signed by: Gomez Benavides M.D. 03/17/2024 11:52 AM
--- NOTE | 2024-03-17 13:51 | Nuclear Medicine Report ---
NM pul perfusion CLINICAL HISTORY: LLE DVT, AGUILAR, contrast allergy Technique: Perfusion imaging was performed in multiple projections after the intravenous injection of 4.9 mCi of Tc-99m labeled macroaggregated albumin (MAA). Comparison: Comparison is made to chest radiograph 03/17/2024 FINDINGS/IMPRESSION: Homogeneous perfusion was seen bilaterally. Low probability of pulmonary emboli sm. ACT 112: Negative or not required by law. Electronically signed by: Chuy Soriano M.D. 03/17/2024 1:50 PM
[2024-03-17] MEDS: GABAPENTIN 100 MG CAP PO STA (14:19)
[2024-03-17] MEDS: LISINOPRIL/HCTZ 20/12.5MG 1 TAB TAB PO STA (14:19)
[2024-03-17] MEDS: VENLAFAXINE HCL XR 75 MG CAPXR PO STA (14:19)
[2024-03-17] MEDS: VERAPAMIL HCL 120 MG TABCR PO STA (14:19)
[2024-03-17] MEDS ORDERED: ALBUTEROL HFA 8 GM INHALER INH PRN (15:06)
[2024-03-17] MEDS ORDERED: hydrOXYzine HCl 25 MG TAB PO PRN (15:06)
[2024-03-17] MEDS: WARFARIN SOD 10 MG TAB PO SCH (16:01)
--- NOTE | 2024-03-17 17:13 | XCELERA ---
[id number]
[2024-03-17] MEDS ORDERED: ENOXAPARIN 1 MG/KG SQ SCH (20:00)
--- NOTE | 2024-03-17 20:16 | Electrocardiogram Report ---
Test Reason : Blood Pressure : / mmHG Vent. Rate : 076 BPM Atrial Rate : 076 BPM P-R Int : 128 ms QRS Dur : 072 ms QT Int : 378 ms P-R-T Axes : -09 045 065 degrees QTc Int : 425 ms Sinus rhythm with Premature supraventricular complexes Otherwise normal ECG No previous ECGs available Confirmed by Brennon Ackerman ([id number]) on 03/17/2024 8:16:19 PM Referred By: Confirmed By:Brennon Ackerman
[2024-03-17] MEDS: ENOXAPARIN INJ 120 MG/0.8 ML SYR SQ SCH (20:49)
[2024-03-17] MEDS: VENLAFAXINE HCL XR 150 MG CAPXR PO SCH (21:13)
[2024-03-17] MEDS: GABAPENTIN 100 MG CAP PO SCH (21:15)
[2024-03-18] MEDS: LEVOTHYROXINE SODIUM 25 MCG TABLET PO SCH (05:51)
[2024-03-18 07:19] LABS: Basophils # (auto) 0.06 K/uL (0.00-0.20); Eosinophils # (auto) 0.25 K/uL (0.00-0.50); Eosinophils % (auto) 4.1 %; Hematocrit (blood only) 34.1 % (37.0-47.0); Hemoglobin 11.5 g/dl (12.0-16.0); Immature Granulocytes # (auto) 0.01 K/uL (0.01-0.20); Immature Granulocytes % (auto) 0.2 %; Lymphocytes % (auto) 41.5 %; Mean Corpuscular Hemoglobin 32.4 pg (25.0-34.0); Mean Corpuscular Hgb Conc 33.7 g/dL (32.0-36.0); Mean Corpuscular Volume 96.1 fL (80.0-100.0); Mean Platelet Volume 11.2 fL (9.4-12.4); Monocytes % (auto) 8.3 %; Neutrophils # (auto) 2.71 K/uL (1.40-6.50); Neutrophils % (auto) 44.9 %; Platelet Count 221 K/uL (130-400); RDW Coefficient of Variation 12.3 % (11.5-14.5); RDW Standard Deviation 43.8 fL (36.4-46.3); Red Blood Count 3.55 M/uL (4.20-5.40); White Blood Count 6.03 K/ul (4.8-10.8)
[2024-03-18 07:41] LABS: BUN Creatinine Ratio 18.9 (10-20); Calcium 9.3 mg/dl (8.6-10.3); Creatinine Clr Calc Pharmacy 55.2 ml/min; Est GFR (African American) 53.1 ml/min; Est GFR (Non-African American) 45.8 ml/min; Magnesium 2.1 mg/dl (1.7-2.4)
[2024-03-18 07:43] LABS: INR 1.1 (0.9-1.1); Prothrombin Time 11.4 Seconds (9.0-12.0)
[2024-03-18 07:58] VITALS: RESP 16
[2024-03-18] MEDS: VENLAFAXINE HCL XR 75 MG CAPXR PO SCH (09:34)
[2024-03-18 11:41] VITALS: BP 111/68; PULSE 60; TEMP 98.1; O2SAT 93
--- NOTE | 2024-03-18 13:13 | Discharge Summary ---
Discharge Summary Date of Service March 18, 2024 Principal Dx & Hospital Course #1 = Principal Diagnosis (1) DVT (deep venous thrombosis): Was sent to the ED at the recommendation of her PCP due to concerns for recurrent DVT in the left lower extremity and possible left upper extremity due to left upper/lower extremity pain/swelling, back pain, and intermittent chest pain. Outpatient D-dimer obtained on 03/16/2024 is elevated at 3800 She has a history of left lower extremity DVT in 08/2023 and a DVT in her 20s. She also has a history of 8 miscarriages and a family history of multiple miscarriages and blood clots Patient had an unremarkable hypercoagulable workup [facility] of this year including lupus anticoagulant, protein C, protein S, antithrombin 3, and factor V Leiden. Homocystine and MTHFR were not checked at that time-c ould consider checking as an outpatient Was started on Lovenox and Coumadin but after discussion with anticoagulation specialist, Dr. Triplett, and now that she has applied for [employer], she can no affordably obtaining Xarelto. Xarelto has more literature studied in obese patients and the patient's weight is 127 kg which is acceptable as per my discussion with the specialist. She is allergic to IV contrast and had a VQ scan which showed low probability for PE. She is not hypoxic, BNP and troponin are negative, and echocardiogram was normal although RV visualization was not very adequate but was grossly normal. Discontinue Lovenox and Coumadin Start Xarelto 15 Mg p.o. twice daily x 3 weeks, followed by 20 mg daily with dinner. Recommend lifelong anticoagulation Bleeding precautions given Follow-up with PCP (2) Sleep apnea: Continue CPAP (3) Benign essential hypertension: Blood pressure is normal Continue lisinoprilhydrochlorothiazide (4) Agoraphobia: Continue Effexor and as needed hydroxyzine (5) PSVT (paroxysmal supraventricular tachycardia): Currently stable continue verapamil Plan Disposition-stable for discharge home Notes For Next Care Provider Patient had an unremarkable hypercoagulable workup [facility] of this year including lupus anticoagulant, protein C, protein S, antithrombin 3, and factor V Leiden. Homocystine and MTHFR were not checked at that time- could consider checking as an outpatient Medication Changes From Visit Added Xarelto 15 Mg p.o. twice daily x 3 weeks, then will need prescription for Xarelto 20 mg every afternoon with dinner Discontinue Eliquis Admission HPI Per Admitting Provider Guerline is a 68-year-old female with a past medical history significant for previous DVT (completed Eliquis therapy), hypertension, hypothyroidism, VESTA on CPAP, morbid obesity, MS who presented to the [facility] ED on 03/17/2024 at the recommendation of her PCP due to concerns for recurrent left lower extremity DVT, possible left upper extremity DVT, and PEs. The patient was seen at her PCPs office on 03/16/2024 with complaints of pleuritic chest pain, dyspnea, and pain in the left upper and lower extremities. An outpatient D- dimer was obtained yesterday which was noted to be elevated at 3800. The patient remained stable while in the ED. Labs including CBC, CMP, high- sensitivity troponin, and BNP were unremarkable. The patient is unable to receive CT contrast that she had a severe anaphylactic reaction in the past. Venous Dopplers of the left lower and left upper extremities were ordered in the ED prior to admission were currently being obtained at this time of admission. Patient was lying in bed in no acute distress at the time of exam she had recently returned from obtaining her left upper and lower extremity Dopplers. She confirms that she had been taking her Xarelto as prescribed for approximately 3 months after diagnosed with her left lower extremity DVT August of this past year. However, she states she stopped taking it because she was having to pay approximately $800 a month. She started taking a full dose aspirin after she stopped taking the Xarelto to try and help prevent recurrent blood clots. She presented to the PCP office yesterday due to ongoing left upper and lower extremity pain/swelling similar to previous DVTs along with left-sided back/chest pain. She confirms that she was given a starter pack of Eliquis by her PCP yesterday, she took 10 mg at approximately 8 AM this morning. This was the first dose of Eliquis she took. Denies recent fever/chills, hemoptysis, abdominal pain, nausea/vomiting, urinary symptoms, diarrhea/melena, and recent trauma. We discussed CODE STATUS, she wishes to be a condition code as she would not want CPR or defibrillation in the event of cardiac arrest. She would want trial of intubation in the event of respiratory failure. She will her and sons to make decisions for her if she cannot make himself. Per chart review, the patient had her first DVT when she was 24 years old and was treated with Xarelto. She was diagnosed with another DVT in the left lower extremity in August of this year and was restarted on Xarelto. Per her PCP note from 12/31/2023, the patient discontinued Xarelto for self because it was reportedly too expensive for her. She then started taking it daily full dose aspirin and statin. Her PCP referred her to hematology for hypercoagulable wor kup but the patient missed this appointment. Please refer to Dr. Hester's attestation for any changes to the treatment plan Discharge Exam Constitutional WD/WN, vitals as above + obese Respiratory normal respiratory effort, lungs clear to auscultation Cardiovascular RRR, no murmur, no edema Psychiatric A+Ox3, euthymic affect Updated Medication List Medication Instructions Recorded Confirmed Type acetaminophen 325 mg tablet 650 mg PO Q4H PRN Pain 05/25/19 03/17/24 History (Tylenol) loratadine 10 mg tablet 10 mg PO DAILY PRN ALLERGY RELIEF 05/25/19 03/17/24 History albuterol sulfate 90 mcg/actuation 2 puff inhalation Q4H PRN 08/15/20 03/17/24 Rx aerosol inhaler Shortness Of Breath #18 grams Auto Titrating CPAP #1 ea 12/12/21 03/16/24 Rx CPAP Supplies #1 ea 12/12/21 03/16/24 Rx ascorbic acid (vitamin C) 1,000 mg 1,000 mg PO QAM 02/08/22 03/17/24 History tablet,extended release levothyroxine 25 mcg tablet 25 mcg PO QAM #90 tabs 04/15/23 03/17/24 Rx vitamin B complex 1 cap PO QAM 05/16/23 03/17/24 History ergocalciferol (vitamin D2) 1,250 1,250 mcg PO WK #14 caps 10/08/23 03/17/24 Rx mcg (50,000 unit) capsule (Vitamin D2) hydroxyzine HCl 25 mg tablet 25 mg PO TID PRN anxiety #60 tabs 10/08/23 03/17/24 Rx Jobst Stockings Knee high 38 cm #4 ea 12/31/23 03/16/24 Rx lisinopril 20 1 tab PO QPM #90 tabs 12/31/23 03/17/24 Rx mg-hydrochlorothiazide 12.5 mg tablet stocking Jose #1 ea 12/31/23 03/16/24 Rx verapamil 120 mg 24 hr 120 mg PO QPM #90 caps 03/01/24 03/17/24 Rx capsule,extended release gabapentin 100 mg capsule 100 mg PO TID #90 caps 03/16/24 03/17/24 Rx venlafaxine 150 mg 150 mg PO HS 03/17/24 03/17/24 History capsule,extended release 24 hr (Effexor XR) venlafaxine 75 mg capsule,extended 75 mg PO QAM 03/17/24 03/17/24 History release 24 hr (Effexor XR) rivaroxaban 15 mg tablet (Xarelto) 15 mg PO BID 21 days #42 tabs 03/18/24 Rx Hospital Stay Data Consultations 03/17/24 10:10 ED Decision to Admit Stat 03/17/24 12:01 Consult 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 Do not stop taking Xarelto without talking to your doctor. Stopping Xarelto increases your risk of having a stroke. Xarelto increases your risk of bleeding which can be serious and may lead to . This is because Xarelto is a blood thinner medicine (anticoagulant). During treatment with Xarelto, you are likely to bruise more easily, and it may take longer for bleeding to stop. * If you ever cannot get bleeding to stop please report to the ER * If you have a bruise that is large/painful or swollen you should also be seen by a medical provider Call your doctor or get medical help right away if you or your child develop any of these signs or symptoms of bleeding: unexpected bleeding or bleeding that lasts a long time, such as: * Nose bleeds that happen often * unusual bleeding from the gums * bleeding that is severe or you cannot control * red, pink or brown urine * bright red or black stools (looks like tar) * cough up blood or blood clots * vomit blood or your vomit looks like coffee grounds If you have a fall and hit your head, please come to the ER and get checked out. Being on a blood thinner increases your risk of brain bleeding with falls. Avoid high risk activities, such as: * standing on tall ladders * riding motorcycles * anything where you are high risk for falls or trauma Avoid taking NSAIDs (pain medication) while you are taking a blood thinner. This includes: * Ibuprofen, Aleve Advil, Naproxen. * If you are ever unsure you can ask your doctor or pharmacist. * Tylenol is SAFE to take. If you have any new or worsening chest pain or shortness of breath please return to the ER. You will need to stay on the Xarelto for the longterm given your history of multiple blood clots. Total Time Total Time Spent Total Time Spent (In Minutes): 40 minutes Total Time Includes: Examination of the Patient, Discharge Planning, Medication Reconciliation and Communication With Other Providers Coding Level of Care Code 70175 INP/OBS DISCH >30 MIN Diagnoses DVT (deep venous thrombosis) I82.402 Affected thrombotic vein of extremity: unspecified vein of extremity Chronicity: acute DVT location: lower extremity Laterality: left Obstructive sleep apnea syndrome G47.33 Sleep apnea type: obstructive Benign essential hypertension I10 Agoraphobia F40.00 PSVT (paroxysmal supraventricular tachycardia) I47.1
[2024-03-18] MEDS ORDERED: VERAPAMIL HCL 120 MG TABCR PO SCH (21:00)
== END 2024-03-18 15:46 | disposition home or self-care (01) | DRG 300 ==
LOC: ED 08:08 → SUATTDRO 10:27 → EDINP 10:27 → INTOOBSV 10:27 → 2N 15:06